=== PATIENT | male | born 1995 | race African-American/Black ===

== ENCOUNTER 2020-06-02 00:12 | Emergency (ER) | payer SELFPAY ==
[2020-06-02] VITALS (20 sets, daily range): BP systolic 110–125; BP diastolic 62–79; PULSE 59–88; RESP 12–21; TEMP 36.7; O2SAT 96–98
--- NOTE | ~2020-06-02 | CT_ITS ---
EXAMINATION: CT brain wo con INDICATION: Headache COMPARISON: None TECHNIQUE: Standard unenhanced head CT. The dose-length product (DLP) was 605.33 mGy-cm. The mA was a djusted according to patient size. Iterative reconstruction technique was employed. FINDINGS: There is no intracranial hemorrhage, acute infarction, or abnormal mass lesion. The ventric les are normal. There is no abnormal mass effect or midline shift. The baldwin-white matter differentiat ion is normal. The basal cisterns are patent. The orbits are normal. There is mucosal thickening of t he ethmoidal air cells. IMPRESSION: 1. No acute intracranial abnormality. Reviewed, dictated and finalized at location A. [employer]
[2020-06-02] MEDS: levETIRAcetam 500MG/NACL 100ML 500 MG/100 ML BAG 400 MG IVPB (00:25)
[2020-06-02 00:40] LABS: Basophils Percent Auto 0.8 % (0.2-1.2); Eosinophils Absolute Auto 0.2 K/mm3 (0-0.3); Eosinophils Percent Auto 4.7 % (0-4.4); Hematocrit 36.7 % (42.0-52.0); Immature Granulocyte Absolute 0.02 K/mm3 (0.00-0.031); Immature Granulocyte Percent A 0.4 % (0-0.5); Lymphocytes Absolute Auto 1.67 K/mm3 (0.9-3.2); Lymphocytes Percent Auto 33.8 % (18.3-44.2); Mean Corpuscular HGB Conc 32.7 g/dl (32-36); Mean Corpuscular Hemoglobin 29.4 pg (26-34); Mean Platelet Volume 9.4 fl (7.4-10.4); Monocytes Absolute Auto 0.6 K/mm3 (0.1-0.6); Neutrophils Absolute Auto 2.3 K/mm3 (1.3-6.7); Neutrophils Percent Auto 47.3 % (45.5-73.1); Platelet Count Result 221 k/mm3 (150-375); Red Blood Count 4.08 M/mm3 (4.6-6.20); Red Cell Distribution Width 13.1 % (11.5-14.5); White Blood Count 4.9 K/mm3 (4.5-10.0)
[2020-06-02 00:53] LABS: Alanine Aminotransferase 67 U/L (4-50); Albumin Level 3.9 g/dL (3.5-5.1); Alkaline Phosphatase 51 U/L (38-126); Anion Gap 6 mmol/L (8-16); Aspartate Amino Transferase 128 U/L (17-59); Bilirubin,Total 0.2 mg/dL (0.2-1.3); Blood Urea Nitrogen 22 mg/dL (9-20); Calcium 8.9 mg/dL (8.4-10.2); Carbon Dioxide 26 mmol/L (22-30); Chloride 109 mmol/L (98-107); Estimated Glomerular Filt Rate > 60; Glucose 123 mg/dL (75-110); Potassium 3.7 mmol/L (3.4-5.0); Sodium 141 mmol/L (137-145)
--- NOTE | 2020-06-02 00:57 | ED.GENADULT ---
HPI - General Adult General Chief complaint: Seizure Stated complaint: Seizure Time Seen by Provider: 06/02/20 00:16 History of Present Illness HPI narrative: Patient is a 24-year-old gentleman who presents the emergency department with chief complaint of seizure. Patient has history of seizure disorder and takes Keppra and takes gabapentin. The patient reports she has an appointment scheduled with a neurologist in the near future as he has been having a large number of breakthrough seizures. Patient reports he is currently in custody by the [facility] department in [place] has been taking his medications and today had several seizures and had approximately 3 seizures at the alf and then had one in route to the emergency department. Currently the patient is alert and at his baseline neurological status. Related Data Allergies Allergy/AdvReac Type Severity Reaction Status Date / Time No Known Allergies Allergy Verified 06/02/20 00:21 Review of Systems Review of Systems: Narrative: A 10 system review of systems was completed on the patient and is negative except for what is stated in the HPI. Nursing and ancillary documentation was reviewed. PMFSH Comments Past medical history is significant for seizures Social history the patient is currently incarcerated Exam Narrative: Exam Narrative: GENERAL: Well-appearing, well-nourished, and in no acute distress. HEAD: Normocephalic, atraumatic. EYES: PERRLA and EOMI. ENT: Nares clear, no rhinorrhea or epistaxis. Mucous membranes moist. NECK: Supple. CHEST: Clear to auscultation. No respiratory distress. HEART: Regular rate and rhythm. No murmur heard. Normal peripheral pulses. ABDOMEN: Soft, nontender, nondistended, normal active bowel sounds. EXTREMITIES: Normal range of motion. No edema. SKIN: Warm, dry, no rash. NEURO: No focal deficits. Alert and oriented x3. PSYCH: Normal mood and affect. Course Course Emergency Course: CT head shows no evidence of acute abnormality laboratory studies are within normal limits Vital Signs Vital signs: Vital Signs Temperature 36.7 C 06/02/20 00:09 Pulse Rate 81 06/02/20 00:09 Respiratory Rate 12 06/02/20 00:09 Blood Pressure 119/79 06/02/20 00:09 Pulse Oximetry 98 06/02/20 00:09 Temperature 36.7 C 06/02/20 00:09 Pulse Rate 81 06/02/20 00:09 Respiratory Rate 12 06/02/20 00:09 Blood Pressure 119/79 06/02/20 00:09 Pulse Oximetry 97 06/02/20 00:18 Medical Decision Making Vital Signs Vital Signs: Vital Signs Temperature 36.7 C 06/02/20 00:09 Pulse Rate 81 06/02/20 00:09 Respiratory Rate 12 06/02/20 00:09 Blood Pressure 119/79 06/02/20 00:09 Pulse Oximetry 98 06/02/20 00:09 Temperature 36.7 C 06/02/20 00:09 Pulse Rate 81 06/02/20 00:09 Respiratory Rate 12 06/02/20 00:09 Blood Pressure 119/79 06/02/20 00:09 Pulse Oximetry 97 06/02/20 00:18 Lab Data Result diagrams: 06/02/20 00:25 06/02/20 00:25 Labs: Lab Results 06/02/20 06/02/20 Range/Units 00:25 00:25 WBC 4.9 (4.5-10.0) K/mm3 RBC 4.08 L (4.6-6.20) M/mm3 Hgb 12.0 L (14.0-18.0) g/dL Hct 36.7 L (42.0-52.0) % MCV 90.0 (80-100) fl MCH 29.4 (26-34) pg MCHC 32.7 (32-36) g/dl RDW 13.1 (11.5-14.5) % Plt Count 221 (150-375) k/mm3 MPV 9.4 (7.4-10.4) fl Immature Gran % (Auto) 0.4 (0-0.5) % Neut % (Auto) 47.3 (45.5-73.1) % Lymph % (Auto) 33.8 (18.3-44.2) % [place] % (Auto) 13.0 H (2.6-8.5) % Eos % (Auto) 4.7 H (0-4.4) % Baso % (Auto) 0.8 (0.2-1.2) % Lymph # (Auto) 1.67 (0.9-3.2) K/mm3 [place] # (Auto) 0.6 (0.1-0.6) K/mm3 Eos # (Auto) 0.2 (0-0.3) K/mm3 Baso # (Auto) 0.0 (0.0-0.1) K/mm3 Abs Immat Gran (auto) 0.02 (0.00-0.031) K/mm3 Absolute Neuts (auto) 2.3 (1.3-6.7) K/mm3 Absolute Nucleated RBC 0.0 (0.0-0.012) K/mm3 Nucleated RBC % 0.0 (0.0-0.2) % Sodium 141 (137-145) mmol/L P
== END 2020-06-02 02:05 ==
PROVIDERS: Emergency Provider Emergency Medicine
DX: G40.409 Other generalized epilepsy and epileptic syndromes, not intractable, without status epilepticus (principal)
CPT/HCPCS: 36415; 70450; 80053; 85025; 96365; 96367; 99284; J0131; J1953

== ENCOUNTER 2020-06-28 19:06 | Inpatient (IN) | payer BC, SELFPAY ==
[2020-06-28] VITALS (16 sets, daily range): BP systolic 94–144; BP diastolic 69–102; PULSE 59–96; RESP 10–19; TEMP 36.2–36.5; O2SAT 97–100; BMI 25.9
--- NOTE | ~2020-06-28 | XR_ITS ---
EXAMINATION: XR chest 1V portable DATE: 06/30/2020 05:45 INDICATION: Intubation TECHNIQUE: frontal view of the chest was obtained. COMPARISON: Chest radiograph dated 06/29/2020 FINDINGS: Endotracheal tube tip 4.6 cm above the wu. Nasogastric tube extends below the left hemidiaphragm with distal tip collimated off the study. Patient is rotated slightly towards the left. No focal airspace opacities, pulmonary edema, pleural e ffusion or pneumothorax. The cardiomediastinal silhouette is normal. IMPRESSION: 1. Lines and tubes in expected positions. No evident acute cardiopulmonary disease. Reviewed, dictated and finalized at location A. IMPRESSION: 1. Lines and tubes in expected positions. No evident acute cardiopulmonary dise ase.
--- NOTE | ~2020-06-28 | CT_ITS ---
EXAMINATION: CT cervical spine wo con DATE: 06/28/2020 21:48 INDICATION: Fall. Head and neck injury. TECHNIQUE: Computed tomography (CT) of the cervical spine was performed without intravenous contrast. Automated exposure control and iterative reconstruction technique were employed. Exam dose: 557.03 mGy-cm total exam DLP. COMPARISON: None FINDINGS: There is reversal cervical curvature which may be due to positioning or muscle spasm. C1 and C2 are normally aligned and the odontoid process is intact. No fracture or dislocation or lock ed facet or prevertebral soft tissue swelling. Cervical interspaces are well preserved.. IMPRESSION: Reversal; otherwise negative Reviewed, dictated and finalized at Location A. Reviewed, dictated and finalized at location A.
--- NOTE | ~2020-06-28 | XR_ITS ---
XR chest 1V portable DATE: 06/28/2020 19:53 INDICATION: Multiple seizures TECHNIQUE: Portable AP chest on 06/28/2020 1955 hours COMPARISON: None FINDINGS: Normal heart size. No hilar or mediastinal enlargement. No pulmonary infiltrate or consolid ation, pleural effusion or pulmonary vascular congestion or pneumothorax. IMPRESSION: No active cardiopulmonary disease Reviewed, dictated and finalized at location A.
--- NOTE | ~2020-06-28 | XR_ITS ---
XR chest 1V portable 07/01/2020 05:56 Indication: Respiratory failure Procedure: AP portable chest Comparison: 06/30/2020 Findings: Endotracheal tube tip 5 cm above the wu. NG tube tip in the stomach, side port likely a kian the GE junction. Bibasilar airspace disease has progressed. No pleural effusion or pneumothorax. No acute osseous abnormality. Impression: 1: Progression of bibasilar airspace disease which may represent edema, pneumonia and/or atelectasis. Reviewed, dictated and finalized at location A. Impression: 1: Progression of bibasilar airspace disease which may represent edema, pneumon ia and/or atelectasis.
--- NOTE | ~2020-06-28 | CT_ITS ---
EXAMINATION: CT brain wo con DATE: 06/28/2020 21:48 INDICATION: Fall. Head injury. TECHNIQUE: Computed tomography (CT) of the head was performed without intravenous contrast. The mA wa s adjusted according to patient size. Iterative reconstruction technique was employed. Exam dose: 60 5.33 mGy-cm total exam DLP. COMPARISON: 06/02/2020 CT brain FINDINGS: No mass lesion or hemorrhage or cerebrovascular accident. No midline shift or mass effect. Normal ventricular size. Normal baldwin-white matter differentiation. No subdural or epidural hematoma. No fracture or bone destruction of the cranial vault. Prominent bilateral patchy ethmoid air cell opacification and at least 1.3 cm mucous retention cyst o r polyp of the right maxillary sinus. The mastoid air cells are normally developed and aerated. IMPRESSION: No intracranial abnormality or skull fracture Prominent patchy bilateral ethmoid air cell opacification and right maxillary sinus polyp or mucous r etention cyst Reviewed, dictated and finalized at Location A. Reviewed, dictated and finalized at location A. IMPRESSION: No intracranial abnormality or skull fracture Prominent patchy bilateral ethmoid air cell opacification and right maxillary s inus polyp or mucous retention cyst
--- NOTE | ~2020-06-28 | XR_ITS ---
EXAMINATION: XR chest ET placement, XR abdomen NG/feed tube insert DATE: 06/29/2020 11:21 INDICATION: Endotracheal tube placement. Orogastric tube placement. TECHNIQUE: 1. Frontal view of the chest was obtained. 2. Single AP view of the abdomen was obtained. COMPARISON: Chest radiograph dated 06/28/2020 FINDINGS: Endotracheal tube tip 3.4 cm above the wu. Lungs remain clear with no focal airspace opacities, p ulmonary edema, pleural effusion or pneumothorax. The cardiomediastinal silhouette is normal. Nasogastric tube tip in proximal side port in the body of the stomach. No dilated loops of gas-filled bowel in the visualized abdomen. IMPRESSION: 1. Endotracheal tube and nasogastric tube in expected positions. 2. No acute cardiopulmonary disease. Reviewed, dictated and finalized at location A. IMPRESSION: 1. Endotracheal tube and nasogastric tube in expected positions. 2. No acute cardiopulmonary disease.
--- NOTE | ~2020-06-28 | CT_ITS ---
EXAMINATION: CT brain wo con DATE: 06/29/2020 13:46 INDICATION: Seizures. Head trauma. TECHNIQUE: Computed tomography (CT) of the head was performed without intravenous contrast. Sagittal and coronal reconstructions were performed. The mA was adjusted according to patient size. Iterative reconstruction technique was employed. The dose-length product was 605.33 mGy-cm. COMPARISON: head CT dated 06/28/2020 FINDINGS: No fracture. No acute intracranial hemorrhage, acute infarction or abnormal extra axial fluid collect ion. Ventricles are normal and symmetric. No mass/mass effect. Mild mucosal thickening the bilateral ethmoid and maxillary sinuses with mucous retention cyst in the inferior right maxillary sinus. The o rbits and mastoid air cells are normal. IMPRESSION: 1. Normal brain. No acute intracranial process. Reviewed, dictated and finalized at location A.
--- NOTE | ~2020-06-28 | XR_ITS ---
XR chest 1V portable 07/03/2020 05:35 Indication: Respiratory distress. Intubation. Procedure: AP portable chest Comparison: Comparison to multiple prior studies sequentially, with oldest reviewed study dated 06/30. Findings: Endotracheal tube tip 2.2 cm above the wu. NG tube in the stomach. No pneumothorax. Pro gression of patchy bilateral airspace disease most confluent in the lower lung zones. Possible small layering effusions. No pneumothorax. No acute osseous abnormality. Impression: 1: Progression of bilateral airspace disease which may represent pneumonia or edema. Reviewed, dictated and finalized at location A. Impression: 1: Progression of bilateral airspace disease which may represent pneumonia or e suyapa.
--- NOTE | ~2020-06-28 | XR_ITS ---
XR chest 1V portable 07/02/2020 05:32 Indication: Respiratory failure Procedure: AP portable chest Comparison: Comparison to multiple prior studies sequentially, with oldest reviewed study dated 06/28. Findings: Endotracheal tube tip 4.1 cm above the wu. NG tube in the stomach. No pneumothorax. Mil d interstitial edema. Layering right pleural effusion. Bibasilar infiltrates. Impression: 1: Mild interstitial edema with layering right pleural effusion. 2: Bibasilar infiltrates may represent atelectasis or pneumonia. Reviewed, dictated and finalized at location A. Impression: 1: Mild interstitial edema with layering right pleural effusion. 2: Bibasilar infiltrates may represent atelectasis or pneumonia.
--- NOTE | ~2020-06-28 | XR_ITS ---
XR chest 1V portable 07/04/2020 05:47 Indication: Respiratory failure Procedure: AP portable chest Comparison: Comparison to multiple prior studies sequentially, with oldest reviewed study dated 06/30. Findings: Bilateral airspace disease of the mid and lower lung zones. Endotracheal tube tip 3.3 cm ab ove the wu. NG tube in the stomach. Small pleural effusions. No pneumothorax. Impression: 1: Bilateral airspace disease predominantly of the mid and lower lung zones, edema or pneumonia. 2: Small pleural effusions. Reviewed, dictated and finalized at location A. Impression: 1: Bilateral airspace disease predominantly of the mid and lower lung zones, ed tom or pneumonia. 2: Small pleural effusions.
--- NOTE | 2020-06-28 19:22 | ED.SEIZURE ---
HPI - Seizure General Chief Complaint: Seizure Stated Complaint: seizure Time Seen by Provider: 06/28/20 19:17 Source: RN notes reviewed History of Present Illness HPI Narrative: Patient presents to emergency department from care home for seizures. Patient has a history of epilepsy currently on Keppra 1500 mg twice a day. The patient only takes his at 7 AM and 7 PM is not taking a 7 PM dose unsure if he took a 7 AM dose. Patient had patient had had several seizures at the care home today and then had seizure for EMS when she was given Valium 10 mg. Patient subsequently had 2 more seizures in the emergency department by my time of evaluation patient is currently unable to give any further history Related Data Home Medications Medication Instructions Recorded Confirmed fluoxetine 20 mg PO DAILY 06/28/20 06/28/20 gabapentin 400 mg PO DAILY 06/28/20 06/28/20 levetiracetam [Keppra] 1,500 mg PO BID 06/28/20 06/28/20 Allergies Allergy/AdvReac Type Severity Reaction Status Date / Time No Known Allergies Allergy Verified 06/02/20 00:21 Review of Systems Review of Systems: ROS unobtainable: Yes unobtainable due to medical condition (Postictal) PMFSH Past Medical History Medical History (Updated 06/29/20 @ 01:58 by Abel Snell DO) Depression Seizure disorder Surgical History Surgical History (Updated 06/29/20 @ 00:08 by Maureen Santos DO) No significant past surgical history Family History Family History Sibling Seizure Arrhythmia Pacemaker Father Arrhythmia Social History Social History (Updated 06/29/20 @ 00:09 by Maureen Santos DO) Smoking status: Never smoker Alcohol use details: Patient denies current alcohol use. Last use: Patient denies illicit substance use. Additional living arrangements comments: The patient is currently incarcerated in the [facility] care home for the last several months. Gender identity (if verbalized by the patient): Male Spiritual care concerns: No Exam Narrative: Exam Narrative: APPEARANCE: Laying in bed with eyes open will shake yes or no to questions about his name but unable to answer definitive questions at this EYES: PERRL HEENT: Normocephalic, atraumatic, OMM RESPIRATORY: No respiratory distress Clear to auscultation bilaterally with no rhonchi wheezing or rales. CARDIOVASCULAR: Regular rate and rhythm without murmurs rubs or gallops. ABDOMINAL: Soft, nontender, nondistended, no rebound or guarding MUSCULOSKELETAl: Moves all extremities. No clubbing, cyanosis or edema. NEURO: Awake and alert. Shakes head yes to his name nonverbal moves all extremities SKIN:: Warm, dry. No rashes lesions or abrasions PSYCHIATRIC: Normal affect/mood, Course Course Emergency Course: Discussed with Dr. Palma after initial evaluation agrees with plan to give Keppra at this time with Ativan for breakthrough seizures Discussed with Dr. Santos presentation work-up agrees with admission at this time Discussed Dr. Palma is a patient's had several further seizures recommends giving other styles milligrams of Keppra states can give up to 4000 mg total of Keppra Patient loaded with an additional 1000 mg of Keppra no additional breakthrough seizures following this Patient now awake and alert x3 following commands in the room Discussed with patient and family results of workup and diagnosis. Discussed need for admission. Patient and family understand and agree to current treatment plan Vital Signs Vital signs: Vital Signs Pulse Rate 79 06/28/20 19:11 Respiratory Rate 15 06/28/20 19:11 Pulse Oximetry 99 06/28/20 19:11 Temperature 97.7 F 06/28/20 22:20 Pulse Rate 64 06/29/20 00:00 Respiratory Rate 16 06/28/20 22:20 Blood Pressure 115/77 06/28/20 22:20 Pulse Oximetry 97 06/28/20 22:20 MDM - Seizure Lab Data Result diagrams: 06/28/20 19:34 06/28/20 19:34 Shahnaz
[2020-06-28] MEDS: LORazepam INJ (*CRX) 2 MG/ML VIAL (19:32)
[2020-06-28] MEDS: levETIRAcetam 1000MG/NACL100ML 1,000 MG/100 ML BAG 400 MG IVPB ×2 (19:33→21:07)
[2020-06-28 19:41] LABS: Basophils Percent Auto 0.2 % (0.2-1.2); Eosinophils Absolute Auto 0.2 K/mm3 (0-0.3); Eosinophils Percent Auto 3.9 % (0-4.4); Hematocrit 38.8 % (42.0-52.0); Hemoglobin 12.6 g/dL (14.0-18.0); Immature Granulocyte Absolute 0.02 K/mm3 (0.00-0.031); Immature Granulocyte Percent A 0.4 % (0-0.5); Lymphocytes Absolute Auto 1.54 K/mm3 (0.9-3.2); Lymphocytes Percent Auto 31.6 % (18.3-44.2); Mean Corpuscular HGB Conc 32.5 g/dl (32-36); Mean Corpuscular Hemoglobin 29.2 pg (26-34); Mean Corpuscular Volume 89.8 fl (80-100); Mean Platelet Volume 9.4 fl (7.4-10.4); Monocytes Absolute Auto 0.7 K/mm3 (0.1-0.6); Monocytes Percent Auto 13.9 % (2.6-8.5); Neutrophils Absolute Auto 2.4 K/mm3 (1.3-6.7); Platelet Count Result 233 k/mm3 (150-375); Red Blood Count 4.32 M/mm3 (4.6-6.20); Red Cell Distribution Width 12.8 % (11.5-14.5); White Blood Count 4.9 K/mm3 (4.5-10.0)
[2020-06-28] MEDS: levETIRAcetam 500MG/NACL 100ML 500 MG/100 ML BAG 400 MG IVPB (19:45)
[2020-06-28] MEDS: SODIUM CHLORIDE 0.9% IV 1,000 ML 999 ML IV CONT (19:49)
[2020-06-28 19:53] LABS: Alanine Aminotransferase 16 U/L (4-50); Albumin Level 3.9 g/dL (3.5-5.1); Alkaline Phosphatase 69 U/L (38-126); Anion Gap 6 mmol/L (8-16); Aspartate Amino Transferase 25 U/L (17-59); Bilirubin,Total 0.2 mg/dL (0.2-1.3); Blood Urea Nitrogen 18 mg/dL (9-20); Calcium 8.6 mg/dL (8.4-10.2); Carbon Dioxide 26 mmol/L (22-30); Chloride 108 mmol/L (98-107); Estimated CRCL calculation 119 ml/min; Estimated Glomerular Filt Rate > 60; Glucose 105 mg/dL (75-110); Potassium 3.8 mmol/L (3.4-5.0); Sodium 140 mmol/L (137-145)
[2020-06-28 21:10] LABS: Add Urine Microscopic? NO; Appearance Urine Clear (Clear); Bilirubin Urine Negative (Negative); Blood Urine Negative (Negative); Color Urine Yellow (Yellow); Glucose Urine UA Negative (Negative); Ketones Urine Negative (Negative); Leukocyte Esterase Ur Negative LEU/UL (Negative); Nitrate Urine Negative (Negative); Protein Urine Negative (Negative); Urobilinogen Urine Negative mg/dL (<2.0)
[2020-06-28 21:21] LABS: Amphetamine Screen Urine Negative (Negative); Barbiturate Screen Urine Negative (Negative); Benzodiazepines Screen Urine Positive (Negative); Cannabinoid Screen Urine Negative (Negative); Cocaine Screen Urine Negative (Negative); Methadone Screen Urine Negative (Negative); Opiate Screen Urine Negative (Negative); Phencyclidine Screen Urine Negative (Negative)
--- NOTE | 2020-06-28 22:19 | ADMGEN ---
This patient, Haresh Kaye, was admitted to IMU Room 211-01. Patient/family oriented to hospital policies and general routines including ID bracelet, bed and alarms, visiting hours, pain management, procedures, bathroom and other care routines, personal items, smoking policy, room service/diet, and visiting hours. Information on how to activate the Rapid Response Team has been discussed. Patient/Family are encouraged to report perceived risks to care and to ask questions if they do not understand what they are told or what they should do.
[2020-06-28] MEDS: SODIUM CHLORIDE 0.9% IV 1,000 ML 125 ML IV CONT (22:25)
--- NOTE | 2020-06-28 22:30 | PC.NURSE ---
Pt accompanied to the room by two police officers. Officers provided [facility] Orientation Checklist. One officer refused to fill out form, stating I don't work here. Information was verbally reviewed.
--- NOTE | 2020-06-28 22:56 | PC.NURSE ---
Dr. Palma called for update on pt condition. No new seizure activity at this time.
--- NOTE | 2020-06-28 23:55 | PM.IMHP ---
H&P: HPI History of Present Illness Date/Time: 06/28/20 23:00 Chief Complaint: Multiple seizures Narrative: 24-year-old male with past medical history of epilepsy since 16 years of age who presented to the ER from the [facility] where he was incarcerated due to multiple seizures. The patient had been evaluated in the ER in May for breakthrough seizure and had been discharged back to the [facility] after given a loading dose of Keppra. The patient reports that he has been taking his medications in his Keppra had been increased to 1500 mg between his last ER visit and this ER visit. Despite these medication changes the patient still has brief seizures every 2 or 3 days. Today the patient had between 5 and 8 seizures prior to arrival to the ER. He had a tonic-clonic seizure and received a dose of 10 mg of Valium. When the patient arrived the ER he had another 2 seizures that lasted less than a minute each. He received 1 bolus of IV Keppra 1 g. After his Keppra bolus he continued to have several other seizures while in the ER. He received 2 mg of Ativan and additional 1 g of Keppra. His seizures are tonic colonic in nature with postictal periods. The patient occasionally will have loss of bladder control with his seizures but did not have loss of bladder control today. Patient reports he has a generalized headache that is 8/10 in intensity. His headache started after his seizures. He denies any head injury. He has no evidence of trauma. He denies any nasal congestion but is noted to be congested on exam. He denies any fevers or chills. He has not had any visual changes. He is currently alert oriented to person, place and month. He is confused as to the year in things is 2019. He initially told me that the president was Joanie but did redirect himself and state that the president is Juliana. Neurology was contacted by the ER physician and recommended placing patient on IV Keppra 1.5 g q.12 hours. Neurology also told the ER physician the patient could have a total of 4 g of Keppra and bolus if needed for continued seizures. [facility] Past Medical History Medical History (Updated 06/29/20 @ 00:13 by Maureen Santos DO) Depression Seizure disorder Surgical History Surgical History (Updated 06/29/20 @ 00:08 by Maureen Santos DO) No significant past surgical history Family History Family History Sibling Seizure Arrhythmia Pacemaker Father Arrhythmia Social History Social History (Updated 06/29/20 @ 00:09 by Maureen Santos DO) Smoking status: Never smoker Alcohol use details: Patient denies current alcohol use. Last use: Patient denies illicit substance use. Additional living arrangements comments: [facility]. Gender identity (if verbalized by the patient): Male Spiritual care concerns: No Meds Home Medications and Allergies Home Medications Medication Instructions Recorded Confirmed Type fluoxetine 20 mg PO DAILY 06/28/20 06/28/20 History gabapentin 400 mg PO DAILY 06/28/20 06/28/20 History levetiracetam [Keppra] 1,500 mg PO BID 06/28/20 06/28/20 History Allergies Allergy/AdvReac Type Severity Reaction Status Date / Time No Known Allergies Allergy Verified 06/02/20 00:21 Vital Signs Vital Signs - 24 hr 06/28/20 19:11 06/28/20 19:15 06/28/20 19:16 Temperature 97.2 F L Pulse Rate 79 79 81 Respiratory Rate 15 10 L 15 Blood Pressure 115/69 115/69 Pulse Oximetry 99 98 97 06/28/20 19:30 06/28/20 19:31 06/28/20 20:14 Temperature Pulse Rate 80 74 Respiratory Rate 14 17 Blood Pressure 94/75 L Pulse Oximetry 98 99 06/28/20 20:15 06/28/20 20:16 06/28/20 20:33 Temperature Pulse Rate 72 91 86 Respiratory Rate 15 10 L 14 Blood Pressure 132/93 H Pulse Oximetry 100 06/28/20 20:34 06/28/20 20:45 06/28/20 20:46 Tem
[2020-06-29] VITALS (33 sets, daily range): BP systolic 105–134; BP diastolic 56–98; PULSE 59–115; RESP 16–24; TEMP 36.1–36.7; O2SAT 98–100
[2020-06-29] MEDS: LORazepam INJ (*CRX) 2 MG/ML VIAL 1 MG IV PUSH (04:49)
[2020-06-29 05:11] LABS: Basophils Percent Auto 0.2 % (0.2-1.2); Eosinophils Absolute Auto 0.2 K/mm3 (0-0.3); Eosinophils Percent Auto 4.6 % (0-4.4); Hematocrit 38.5 % (42.0-52.0); Hemoglobin 12.5 g/dL (14.0-18.0); Immature Granulocyte Absolute 0.02 K/mm3 (0.00-0.031); Immature Granulocyte Percent A 0.4 % (0-0.5); Lymphocytes Absolute Auto 1.62 K/mm3 (0.9-3.2); Lymphocytes Percent Auto 35.5 % (18.3-44.2); Mean Corpuscular HGB Conc 32.5 g/dl (32-36); Mean Corpuscular Hemoglobin 29.5 pg (26-34); Mean Corpuscular Volume 90.8 fl (80-100); Mean Platelet Volume 9.4 fl (7.4-10.4); Monocytes Absolute Auto 0.6 K/mm3 (0.1-0.6); Monocytes Percent Auto 13.4 % (2.6-8.5); Neutrophils Absolute Auto 2.1 K/mm3 (1.3-6.7); Neutrophils Percent Auto 45.9 % (45.5-73.1); Platelet Count Result 236 k/mm3 (150-375); Red Blood Count 4.24 M/mm3 (4.6-6.20); Red Cell Distribution Width 12.9 % (11.5-14.5); White Blood Count 4.6 K/mm3 (4.5-10.0)
[2020-06-29] MEDS: ACETAMINOPHEN 325 MG TABLET 650 MG PO (05:28)
[2020-06-29 05:51] LABS: Alanine Aminotransferase 15 U/L (4-50); Albumin Level 3.5 g/dL (3.5-5.1); Alkaline Phosphatase 63 U/L (38-126); Anion Gap 4 mmol/L (8-16); Aspartate Amino Transferase 24 U/L (17-59); Bilirubin,Total 0.5 mg/dL (0.2-1.3); Blood Urea Nitrogen 12 mg/dL (9-20); Calcium 8.4 mg/dL (8.4-10.2); Carbon Dioxide 25 mmol/L (22-30); Chloride 109 mmol/L (98-107); Estimated CRCL calculation 144 ml/min; Estimated Glomerular Filt Rate > 60; Glucose 94 mg/dL (75-110); Potassium 3.8 mmol/L (3.4-5.0); Sodium 138 mmol/L (137-145)
[2020-06-29] MEDS: SODIUM CHLORIDE 0.9% IV 1,000 ML 125 ML IV CONT (06:38)
[2020-06-29] MEDS: ENOXAPARIN 40 MG/0.4 ML SYRINGE SUB-Q (08:43)
[2020-06-29] MEDS: FLUoxetine HCL 20 MG CAPSULE PO (08:43)
[2020-06-29] MEDS: GABAPENTIN 400 MG CAPSULE PO (08:43)
--- NOTE | 2020-06-29 10:22 | PC.NURSE ---
RN outside of room and heard loud thump in patient's room. Upon entering patient's room I saw patient on floor seizing. RN notified Dr. Street immediately who was in the room next door and she promptly came to see patient. Rapid Response was called and initiated. Administered 1mg of ativan and returned PT to bed.Vitals signs obtained and were stable. Dr. Street had called Dr. Lilly about transferring patient to ICU. IV Keppra changed to Q8H. Dr. Lilly notified Dr. Palma of situation. IV Valproic acid Q8H was then also ordered, with first dose now. Stat brain CT ordered. Adminstered 4mg of ativan r/t patient seizing again. Pt then moved to ICU for intubation r/t status epilepticus for airway protection. Brain CT to be obtained post intubation. Report given to JADEN Pearson @ [id number]
[2020-06-29] MEDS: LORazepam INJ (*CRX) 2 MG/ML VIAL IV PUSH ×2 (10:23→20:28)
[2020-06-29] MEDS: LORazepam INJ (*CRX) 2 MG/ML VIAL 4 MG IV PUSH (10:38)
[2020-06-29] MEDS: RAPID SEQUENCE INTUBATION KIT 1 EACH (10:57)
[2020-06-29] MEDS: SODIUM CHLORIDE 0.9% IV 1,000 ML 999 ML IV CONT (11:00)
[2020-06-29] MEDS: PROPOFOL IV EMULSION 100 ML 4.92 MG IV CONT (11:00)
--- NOTE | 2020-06-29 11:07 | WPDCNINT ---
Assessment and Plan Assessment and plan (1) Seizure disorder: Code(s): G40.909 - Epilepsy, unspecified, not intractable, without status epilepticus Status: Acute Assessment and Plan: Patient with known history of seizure disorder with possible noncompliance with medication -multiple seizure activity since the time of admission -patient had been optimized with Keppra 1 g IV q.8 hours -discuss with neurology in added valproic acid 1 g q.8 hours -patient currently intubated, currently sedated with fall infusion which would benefit with seizures (2) Acute respiratory failure: Code(s): J96.00 - Acute respiratory failure, unspecified whether with hypoxia or hypercapnia Status: Acute Assessment and Plan: Patient was intubated secondary to being unresponsive and for airway protection -currently on CMV mode of ventilation, 50% FiO2, peep of 5 -Will obtain ABG -patient hopefully will be extubated soon once the seizures under control -currently on propofol infusion and Versed infusion (3) DVT prophylaxis: Code(s): Z29.9 - Encounter for prophylactic measures, unspecified Status: Acute Assessment and Plan: DVT prophylaxis: Lovenox Stress ulcer prophylaxis: Protonix Additional Plan Code status: Full code Critical care time spent: 47 minutes This dictation may have been done utilizing a voice recognition system. Attempts have been made to correct errors. However, there may be uncorrected grammatical, spelling, and recognition errors present. Due to a high probability of clinically significant, life threatening deterioration, the patient required my highest level of preparedness to intervene emergently and I personally spent this critical care time directly and personally managing the patient. This critical care time included obtaining a history; examining the patient; pulse oximetry; ordering and review of studies; arranging urgent treatment with development of a management plan; evaluation of patient's response to treatment; frequent reassessment; and discussions with other providers. It was exclusive of separately billable procedures and treating other patients and teaching time. Please see Assessment and Plan section and the rest of the note for further information on patient assessment and treatment [employer] Consult Note Consult date: 06/29/20 Time Seen: 10:36 Reason for consult: Seizures, intubated secondary to airway protection on 06/30/2020 HPI: Haresh Kaye is a 24 year old male with past medical history of seizures, depression disorder presented [facility]. Patient does have a history of seizures and is on Keppra 1500 mg q.12 hours. Patient possibly noncompliant with ER report. Patient had several seizures in the long-term on the day of admission, also had seizures in the ambulance Valium 10 mg prior to arrival to the hospital. He subsequently had 2 more seizures in the ER were tonic-clonic lasting less than a minute each. Patient received 1 g of Keppra IV, after which she continued to have seizure in the ER. Patient had been receiving Ativan. According to the hospitalist note patient also had headaches on the day of admission, 8/10 intensity. He complains of the headache started after the seizures. Denies any head injury. No evidence of trauma. Denies any fevers or chills, no visual changes. After neurology was contacted by the ER physician they recommended placing 1 Keppra 1.5 q.12 hours. Patient was transferred to the intermediate unit for further monitoring 06/29/2020: Patient was sitting up the side of the bed using the urinal when he had a tonic-clonic seizure activity and fell backwards and hit the ground, on if he hit his head or his elbows. Rapid response was called I went to see the patient who was in postictal. But open his eyes, followed commands in all extremities but did not answer any questions. While I was trying t
--- NOTE | 2020-06-29 11:30 | PC.NURSE ---
This patient, Haresh Kaye, was transferred to [ICU-4 ] on 06/29/20 at 1050. Personal belongings sent with patient. Report given to [JADEN Pearson at bedside @ 1130]. Appropriate documentation sent with patient.
--- NOTE | 2020-06-29 11:51 | PC.NURSE ---
[facility] [place] informed to notify next of kin for patient, that patient has been moved to ICU d/t change in status.
[2020-06-29] MEDS: PANTOPRAZOLE SODIUM IV 40 MG VIAL IV PUSH (11:54)
[2020-06-29] MEDS: MIDAZOLAM HCL (*CRX) 2 MG/2 ML VIAL IV PUSH (11:57)
--- NOTE | 2020-06-29 12:14 | WPDNEURCNPN ---
Assessment and Plan Assessment and plan (1) Status epilepticus: Code(s): G40.901 - Epilepsy, unspecified, not intractable, with status epilepticus Status: Acute (2) Breakthrough seizure: Code(s): G40.919 - Epilepsy, unspecified, intractable, without status epilepticus Status: Acute (3) Seizure disorder: Code(s): G40.909 - Epilepsy, unspecified, not intractable, without status epilepticus Status: Acute Additional Plan recurrent seizures in a person who is known to be epileptic and has been is started on Keppra work he has been taking on a regular basis but because of the his status at this stage Depakote: Has been added. Consult date: 06/29/20 Time Seen: 11:00 HPI: Haresh Kaye is a 24 year old male admitted to the hospital through the emergency room where he was brought from the [facility] with the complains of multiple seizures. Patient had been evaluated in May also for breakthrough seizures and had been started on Keppra on his last visit to the emergency room .patient was noted to have several brief seizures and on the day of visit to the emergency room more which were described as tonic-clonic somewhat responding to IV Valium ,subsequently requiring loading dosage of Keppra and admitted to hospital for further management Review of Systems Review of Systems: All systems reviewed & are unremarkable except as noted in HPI and below PMFSH Past Medical History Medical History Depression Seizure disorder Surgical History Surgical History No significant past surgical history Family History Family History Sibling Seizure Arrhythmia Pacemaker Father Arrhythmia Social History Social History (Updated 06/29/20 @ 00:09 by Maureen Santos DO) Smoking status: Never smoker Alcohol use details: Patient denies current alcohol use. Last use: Patient denies illicit substance use. Additional living arrangements comments: The patient is currently incarcerated in the [facility] for the last several months. Gender identity (if verbalized by the patient): Male Spiritual care concerns: No Meds Home Medications and Allergies Home Medications Medication Instructions Recorded Confirmed Type fluoxetine 20 mg PO DAILY 06/28/20 06/28/20 History gabapentin 400 mg PO DAILY 06/28/20 06/28/20 History levetiracetam [Keppra] 1,500 mg PO BID 06/28/20 06/28/20 History Allergies Allergy/AdvReac Type Severity Reaction Status Date / Time No Known Allergies Allergy Verified 06/02/20 00:21 Vital Signs Vital Signs - 24 hr 06/28/20 19:11 06/28/20 19:15 06/28/20 19:16 Temperature 36.2 C L Pulse Rate 79 79 81 Respiratory Rate 15 10 L 15 Blood Pressure 115/69 115/69 Pulse Oximetry 99 98 97 06/28/20 19:30 06/28/20 19:31 06/28/20 20:14 Temperature Pulse Rate 80 74 Respiratory Rate 14 17 Blood Pressure 94/75 L Pulse Oximetry 98 99 06/28/20 20:15 06/28/20 20:16 06/28/20 20:33 Temperature Pulse Rate 72 91 86 Respiratory Rate 15 10 L 14 Blood Pressure 132/93 H Pulse Oximetry 100 06/28/20 20:34 06/28/20 20:45 06/28/20 20:46 Temperature Pulse Rate 81 66 74 Respiratory Rate 12 11 L 14 Blood Pressure 144/102 H 131/82 Pulse Oximetry 99 99 100 06/28/20 21:00 06/28/20 21:01 06/28/20 22:20 Temperature 36.5 C Pulse Rate 61 80 96 Respiratory Rate 19 13 16 Blood Pressure 120/80 115/77 Pulse Oximetry 99 99 97 06/28/20 22:32 06/29/20 00:00 06/29/20 02:00 Temperature Pulse Rate 59 L 64 62 Respiratory Rate Blood Pressure Pulse Oximetry 06/29/20 04:00 06/29/20 06:00 06/29/20 08:00 Temperature 36.1 C L Pulse Rate 59 L 62 83 Respiratory Rate 18 Blood Pressure 105/56 L Pulse Oximetry 98 06/29/20 08:25 06/29/20 08:50 06/29/20 10:00 Tempera
[2020-06-29] MEDS: MIDAZOLAM 100MG/NS 100ML(*CRX) 100 MG/100 ML BAG IV CONT (12:26)
[2020-06-29 13:01] LABS: Base Excess ABG -0.3 mEq/l (+/-2.0); Carboxyhemoglobin 0.3 % THb (0-2.0); Fractional Inspired Oxygen 50 %; HCO3 ABG 23.8 mEq/l (22.0-26.0); Methemoglobin ABG 0.5 %THb (0-1.5); Oxygen Content ABG 18.5 %vol (16.0-22.0); Oxygen Saturation ABG 99.5 % (95.0-100.0); PCO2 ABG 37.3 mmHg (35.0-45.0); PO2 ABG 217.5 mmHg (80.0-100.0); PO2 FiO2 Ratio Arterial Blood 4.35 %; Reduced Hemoglobin 1.2 %THb (0-5.0); Total Hemoglobin 13.1 g/dL (12.0-18.0); pH ABG 7.423 (7.350-7.450)
[2020-06-29 13:02] LABS: Arterial Blood Gas PEEP 5 cmH2O; Arterial Blood Gas Tidal Volume 500 ml; Arterial Blood Gas Vent Mode CMV; Arterial Blood Gas Ventilator rate 18 /MIN; Device VENTILATOR; Site Drawn LEFT BRACHIAL
[2020-06-29 13:03] LABS: Arterial Blood Gas Pressure Support 0 cmH2O
[2020-06-29] MEDS: SODIUM CHLORIDE 0.9% IV 1,000 ML 100 ML IV CONT ×2 (13:11→23:43)
[2020-06-29] MEDS: levETIRAcetam 1000MG/NACL100ML 1,000 MG/100 ML BAG 400 MG IVPB ×2 (13:16→21:39)
--- NOTE | 2020-06-29 13:29 | WPDPROCEDUR ---
Procedures Intubation Intubation Date: 06/29/20 Intubation Time: 10:51 A pre-procedural Time-Out was completed immediately before starting the procedure and confirmed: Patient Identification, Site, Procedure, Patient Position and the Availability of Requisite Equipment: Yes Sedative: etomidate Paralytic: rocuronium Laryngoscope: fiber optic video scope ET tube size: 8 Tube secured depth (cm): 24 Tube secured location: lips Tube placement confirmation: visualized tube passing through cords, equal breath sounds bilaterally, no breath sounds over epigastrium and confirmation by capnometry Patient tolerated procedure: well Intubation complications: none Additional comments: I was Proctoring Dr. Street for this procedure and was present for the entire time of the procedure. I was standing by her side when she looked through the glide scope, vocal cords were visualized on the screen, Dr. Whiting inserted the ETT to the vocal cords into the trachea, secured the ETT at a depth of 24 cm at the lip. Confirmation was done with good color change on capnography, equal and bilateral breath sounds. Procedure was uneventful.
--- NOTE | 2020-06-29 13:50 | PM.IMPN ---
Progress Note: A&P Assessment and Plan (1) Status epilepticus: Code(s): G40.901 - Epilepsy, unspecified, not intractable, with status epilepticus Status: Acute Assessment and Plan: patient placed on ventilator support for further treatment and management with loaded with valproic acid currently on ventilator support management as per pt escort, appreciate pt escort note. neurology has been consulted appreciate neurology note follow neurology recommendations (2) Breakthrough seizure: Code(s): G40.919 - Epilepsy, unspecified, intractable, without status epilepticus Status: Acute Assessment and Plan: the patient had had his Keppra adjusted has had other trips to emergency room for similar problem Keppra has been restarted (3) Seizure disorder: Code(s): G40.909 - Epilepsy, unspecified, not intractable, without status epilepticus Status: Acute Assessment and Plan: patient with known epilepsy usually on Keppra but having breakthrough seizures currently on ventilator support and under sedation will get valproic acid Subjective Date/time seen: 06/29/20 13:50 patient is now on ventilator Review of Systems Review of Systems: Narrative: patient was brought to emergency room due to having seizures. patient is currently on ventilator support ROS unobtainable: Yes unobtainable due to medical condition Exam Narrative: Exam Narrative: at the time I visited the patient in the room he was sitting by the edge of the bed after he used the urinal. patient was able to answer simple questions with yes or no, shortly after I left the room a loud thought was heard as we entered the patient was laying face down and seizing on the floor a rapid response was activated under consult to pt escort Critical Care was called. after giving Ativan x1 it was noted the patient has been foamy secretions coming out of his mouth and was in and out of seizure not fully recuperating and post ictal decision was made to bring the patient to intensive care and placed under sedation and ventilator support for airway protection to avoid aspiration as well as seizure treatment. patient is now on ventilator. Const: General: comfortable, no acute distress, well developed, alert and awake Nutritional Appearance: average body habitus Orientation/consciousness: Other orientation findings ( Post ictal) HENMT: Head: normal to inspection, normocephalic and atraumatic Ears: hearing grossly normal bilaterally Face and sinus: normal facial exam Eyes: General: appearance normal, both eyes and all related structures Pupils: Equal, round and reactive pupils present EOM: EOMs intact bilaterally Neck: Neck: full ROM, no lymphadenopathy and no JVD Thyroid: thyroid normal Lymphatic: no lymphadenopathy noted Resp: Effort & Inspection: normal respiratory effort and able to speak in complete sentences Auscultation: clear to auscultation bilaterally Cardio: Jugular venous distension: no JVD Rate: regular rate Rhythm: regular rhythm Heart sounds: S1 normal heart sound present and S2 normal heart sound present GI: GI Palp: Yes Soft to palpation and Yes No hepatosplenomegaly present : General: Yes deferred Skin: Rashes: no rashes Wounds: no wounds Neuro: General: patient oriented x3, CN's II-XI intact bilaterally and other ( currently under sedation) Cranial nerves: Yes CN's II-XII intact bilaterally and Yes Equal, round and reactive pupils present Cognition (Neuro): normal cognition Speech: normal speech Gait exam (Neuro): Normal gait present Motor exam (neuro): 5/5 motor strength present throughout Extrem: General: normal to inspection, full ROM, no joint enlargement and no pedal edema Objective Data Vital Signs Vital Signs: Vital Signs - 24 hr 06/28/20 19:11 06/28/20 19:15 06/28/20 19:16 Temperature 97.2 F L Pulse Rate 79 79 81 Respiratory Rate 15 10 L 15 Blood Pressure 115/6
[2020-06-29] MEDS: PROPOFOL IV EMULSION 100 ML 24.6 MG IV CONT ×3 (15:06→23:43)
--- NOTE | 2020-06-29 18:56 | PC.NURSE ---
This patient, Haresh Kaye, was received from [[id number] ] on 06/29/20 at 1130. Patient/family oriented to unit policies and routines
[2020-06-30] VITALS (34 sets, daily range): BP systolic 116–144; BP diastolic 71–92; PULSE 55–125; RESP 16–20; TEMP 36.4–37.7; O2SAT 96–100
[2020-06-30] MEDS: PROPOFOL IV EMULSION 100 ML 24.6 MG IV CONT ×2 (03:35→16:23)
[2020-06-30 04:34] LABS: Basophils Percent Auto 0.2 % (0.2-1.2); Eosinophils Absolute Auto 0.1 K/mm3 (0-0.3); Eosinophils Percent Auto 2.6 % (0-4.4); Hematocrit 38.3 % (42.0-52.0); Hemoglobin 12.7 g/dL (14.0-18.0); Immature Granulocyte Absolute 0.02 K/mm3 (0.00-0.031); Immature Granulocyte Percent A 0.4 % (0-0.5); Lymphocytes Absolute Auto 1.07 K/mm3 (0.9-3.2); Lymphocytes Percent Auto 20.1 % (18.3-44.2); Mean Corpuscular HGB Conc 33.2 g/dl (32-36); Mean Corpuscular Hemoglobin 29.5 pg (26-34); Mean Corpuscular Volume 89.1 fl (80-100); Mean Platelet Volume 9.3 fl (7.4-10.4); Monocytes Absolute Auto 0.6 K/mm3 (0.1-0.6); Monocytes Percent Auto 11.8 % (2.6-8.5); Neutrophils Absolute Auto 3.5 K/mm3 (1.3-6.7); Neutrophils Percent Auto 64.9 % (45.5-73.1); Platelet Count Result 226 k/mm3 (150-375); White Blood Count 5.3 K/mm3 (4.5-10.0)
[2020-06-30 04:47] LABS: Alanine Aminotransferase 16 U/L (4-50); Albumin Level 3.4 g/dL (3.5-5.1); Alkaline Phosphatase 87 U/L (38-126); Anion Gap 5 mmol/L (8-16); Aspartate Amino Transferase 26 U/L (17-59); Bilirubin,Total 0.7 mg/dL (0.2-1.3); Blood Urea Nitrogen 8 mg/dL (9-20); Calcium 8.6 mg/dL (8.4-10.2); Carbon Dioxide 24 mmol/L (22-30); Chloride 112 mmol/L (98-107); Estimated CRCL calculation 144 ml/min; Estimated Glomerular Filt Rate > 60; Glucose 83 mg/dL (75-110); Magnesium 1.8 mg/dL (1.6-2.3); Potassium 3.4 mmol/L (3.4-5.0); Sodium 141 mmol/L (137-145)
[2020-06-30 05:22] LABS: Alveolar/Arterial O2 Gradient 56.9 mmHg; Base Excess ABG -0.6 mEq/l (+/-2.0); Carboxyhemoglobin 0.1 % THb (0-2.0); Device VENTILATOR; Fractional Inspired Oxygen 30 %; HCO3 ABG 22.1 mEq/l (22.0-26.0); Methemoglobin ABG 0.5 %THb (0-1.5); Modified Allen's Test Unable to perform; Oxygen Content ABG 19.1 %vol (16.0-22.0); Oxygen Saturation ABG 98.6 % (95.0-100.0); Oxyhemoglobin 97.4 % THb (90.0-100.0); PCO2 ABG 30.8 mmHg (35.0-45.0); PO2 ABG 120.8 mmHg (80.0-100.0); PO2 FiO2 Ratio Arterial Blood 4.03 %; Site Drawn RIGHT RADIAL; Total Hemoglobin 13.8 g/dL (12.0-18.0); pH ABG 7.473 (7.350-7.450)
[2020-06-30 05:23] LABS: Arterial Blood Gas PEEP 5 cmH2O; Arterial Blood Gas Tidal Volume 500 ml; Arterial Blood Gas Vent Mode CMV; Arterial Blood Gas Ventilator rate 18 /MIN
[2020-06-30] MEDS: levETIRAcetam 1000MG/NACL100ML 1,000 MG/100 ML BAG 400 MG IVPB ×3 (05:35→17:53)
[2020-06-30] MEDS: MIDAZOLAM 100MG/NS 100ML(*CRX) 100 MG/100 ML BAG IV CONT (06:35)
[2020-06-30] MEDS: PROPOFOL IV EMULSION 100 ML 19.68 MG IV CONT (07:27)
[2020-06-30] MEDS: PANTOPRAZOLE SODIUM IV 40 MG VIAL IV PUSH (08:03)
[2020-06-30] MEDS: ENOXAPARIN 40 MG/0.4 ML SYRINGE SUB-Q (08:05)
[2020-06-30] MEDS: GABAPENTIN 400 MG CAPSULE PO (08:07)
[2020-06-30] MEDS: FLUoxetine HCL 20 MG CAPSULE PO (08:07)
[2020-06-30] MEDS: POTASSIUM CHLORIDE 20 MEQ PACKET (FOR LIQUID) 40 MEQ FEED TUBE (08:12)
--- NOTE | 2020-06-30 09:12 | WPDINTPN ---
Progress Note: A&P Assessment and Plan (1) Seizure disorder: Code(s): G40.909 - Epilepsy, unspecified, not intractable, without status epilepticus Status: Acute Assessment and Plan: Patient with known history of seizure disorder with possible noncompliance with medication -multiple seizure activity since the time of admission -patient on propofol and Versed infusion despite which she had a seizure on the night of 06/29/2020 -discussed with Neurology, will increase Keppra to 1 g Q6H -continue valproic acid 1 g Q8H (2) Acute respiratory failure: Code(s): J96.00 - Acute respiratory failure, unspecified whether with hypoxia or hypercapnia Status: Acute Assessment and Plan: Patient was intubated secondary to being unresponsive and for airway protection -currently on CMV mode of ventilation, 50% FiO2, peep of 5 -Will obtain ABG -patient hopefully will be extubated soon once the seizures under control -currently on propofol infusion and Versed infusion, increasing Keppra, will start weaning his sedation evaluate for extubation if he passes his SBT (3) DVT prophylaxis: Code(s): Z29.9 - Encounter for prophylactic measures, unspecified Status: Acute Assessment and Plan: DVT prophylaxis: Lovenox Stress ulcer prophylaxis: Protonix Additional Plan Code status: Full code Critical care time spent: 32 minutes This dictation may have been done utilizing a voice recognition system. Attempts have been made to correct errors. However, there may be uncorrected grammatical, spelling, and recognition errors present. Due to a high probability of clinically significant, life threatening deterioration, the patient required my highest level of preparedness to intervene emergently and I personally spent this critical care time directly and personally managing the patient. This critical care time included obtaining a history; examining the patient; pulse oximetry; ordering and review of studies; arranging urgent treatment with development of a management plan; evaluation of patient's response to treatment; frequent reassessment; and discussions with other providers. It was exclusive of separately billable procedures and treating other patients and teaching time. Please see Assessment and Plan section and the rest of the note for further information on patient assessment and treatment Subjective Date/time seen: 06/30/20 09:12 Interval history: Reason for consult: Seizures, intubated secondary to airway protection on 06/30/2020 06/30/2020: Patient seen and examined this morning in the ICU, remains sedated on propofol 50 mcg/kg/min and Versed infusion 5 mg/hr. Patient did have an episode of seizures last night and Versed was increased. Patient is on 30% FiO2 with good O2 sats, hemodynamically stable. Good urine output, no other issues overnight Review of Systems Review of Systems: ROS unobtainable: Yes unobtainable due to endotracheal tube Exam Const: General: comfortable and no acute distress HENMT: Mouth: Yes moist mucous membranes Eyes: Sclera: sclerae normal Pupils: Equal, round and reactive pupils present Neck: Neck: supple Resp: Effort & Inspection: normal respiratory effort Auscultation: clear to auscultation bilaterally Cardio: Rate: regular rate Rhythm: regular rhythm GI: Inspection: non-distended GI Palp: Yes Soft to palpation and No Tenderness to palpation present (GI) Auscultation: normal bowel sounds : Other: Nation catheter in place Urinary Catheter: Urinary Catheter: patent and draining and urine clear Skin: General skin exam: normal color Other: Tattoos noted Neuro: Cranial nerves: Yes Equal, round and reactive pupils present Other: Patient intubated, sedated, does not open his eyes or follow simple command -prior to intubation patient patient was awake, simple commands. After which she had multiple episodes of seizure activity Extrem: General: abdelrahman
[2020-06-30] MEDS: SODIUM CHLORIDE 0.9% IV 1,000 ML 100 ML IV CONT ×2 (09:41→19:58)
--- NOTE | 2020-06-30 09:44 | WPDNEUROPN ---
Progress Note: A&P Assessment and Plan (1) Status epilepticus: Code(s): G40.901 - Epilepsy, unspecified, not intractable, with status epilepticus Status: Acute (2) Acute respiratory failure: Code(s): J96.00 - Acute respiratory failure, unspecified whether with hypoxia or hypercapnia Status: Acute Additional Plan neurologically stable on propofol had a brief seizure yesterday measure being continued as such , possibly extubation today Review of Systems Review of Systems: All systems reviewed & are unremarkable except as noted in HPI and below Exam Const: General: patient obtunded Orientation/consciousness: Other orientation findings ( sedated) Limitations: other limitations Neck: Neck: full ROM Resp: Effort & Inspection: normal respiratory effort Cardio: Rate: regular rate Rhythm: regular rhythm Neuro: Comatose Patient: response to noxious stimuli present Extrem: General: normal to inspection Objective Data Vital Signs Vital Signs: Vital Signs - 24 hr 06/29/20 10:00 06/29/20 10:30 06/29/20 11:00 Temperature Pulse Rate 77 73 115 H Respiratory Rate 24 H Blood Pressure 122/60 Pulse Oximetry 99 100 06/29/20 11:32 06/29/20 11:40 06/29/20 11:45 Temperature Pulse Rate 99 93 Respiratory Rate 19 23 H Blood Pressure 119/98 H Pulse Oximetry 06/29/20 11:47 06/29/20 12:00 06/29/20 12:26 Temperature 36.7 C Pulse Rate 91 81 76 Respiratory Rate 23 H 18 18 Blood Pressure 123/76 Pulse Oximetry 99 06/29/20 13:25 06/29/20 13:53 06/29/20 13:55 Temperature Pulse Rate 74 75 70 Respiratory Rate 18 18 Blood Pressure Pulse Oximetry 100 06/29/20 14:00 06/29/20 16:00 06/29/20 16:17 Temperature 36.4 C L Pulse Rate 75 75 70 Respiratory Rate 18 18 18 Blood Pressure 126/74 129/82 Pulse Oximetry 100 100 06/29/20 17:17 06/29/20 18:00 06/29/20 19:20 Temperature Pulse Rate 60 60 60 Respiratory Rate 18 Blood Pressure 134/90 Pulse Oximetry 100 100 06/29/20 19:26 06/29/20 19:54 06/29/20 20:00 Temperature Pulse Rate 60 69 70 Respiratory Rate 18 Blood Pressure Pulse Oximetry 100 03/20/21 20:01 06/29/20 20:30 06/29/20 22:00 Temperature 36.7 C Pulse Rate 71 63 62 Respiratory Rate 18 18 Blood Pressure 134/90 Pulse Oximetry 100 06/29/20 22:01 06/29/20 22:53 06/30/20 00:00 Temperature Pulse Rate 62 70 58 L Respiratory Rate 18 Blood Pressure 126/83 Pulse Oximetry 100 100 06/30/20 00:01 06/30/20 02:00 06/30/20 02:18 Temperature 36.8 C Pulse Rate 58 L 59 L 58 L Respiratory Rate 18 18 Blood Pressure 124/85 119/77 Pulse Oximetry 100 100 100 06/30/20 04:00 06/30/20 04:01 06/30/20 05:34 Temperature 36.8 C Pulse Rate 58 L 59 L 57 L Respiratory Rate 18 Blood Pressure 116/77 Pulse Oximetry 100 100 06/30/20 06:00 06/30/20 06:01 06/30/20 07:20 Temperature Pulse Rate 59 L 59 L 57 L Respiratory Rate 18 18 Blood Pressure 123/78 Pulse Oximetry 100 06/30/20 07:57 06/30/20 08:00 06/30/20 08:14 Temperature 36.4 C L Pulse Rate 56 L 56 L 58 L Respiratory Rate 16 16 Blood Pressure 122/77 Pulse Oximetry 100 100 06/30/20 08:29 06/30/20 09:03 Temperature Pulse Rate 58 L 62 Respiratory Rate 16 16 Blood Pressure Pulse Oximetry Intake/Output Intake/Output: Intake & Output 06/27/20 06/28/20 06/29/20 06/30/20 23:59 23:59 23:59 23:59 Intake Total 1300 4788 1587 Output Total 200 5355 2525 Balance 1100 316 -813 Meds/Results Medications: Active Medications Generic Name Dose Route Start Last Admin Trade Name Freq PRN Reason Stop Dose Admin Acetaminophen 650 mg 06/29/20 05:06 06/29/20 05:28 Acetaminophen 325 Mg Tablet PO 650 mg Q4H PRN Administration Mild Pain (1-3) or Fever Enoxaparin Sodium 40 mg 06/29/20 09:00 06/30/20 08:05 Enoxaparin 40 Mg/0.4 Ml Syringe SUB-Q 40 mg DAILY GONZALEZ Administration Fluoxet
--- NOTE | 2020-06-30 12:57 | PM.IMPN ---
Progress Note: A&P Assessment and Plan (1) Status epilepticus: Code(s): G40.901 - Epilepsy, unspecified, not intractable, with status epilepticus Status: Acute Assessment and Plan: patient was placed on ventilator support for airway management as well as secretion better seizure control had 1 seizure last night Keppra has been increased to 1 g Q 6 hours valproic acid 1 g Q 8 planning for extubation today weaning off of sedation supportive care (2) Fall: Code(s): W19.XXXA - Unspecified fall, initial encounter Status: Acute Assessment and Plan: patient sustained a fall yesterday while he was sitting by the edge of the bed and started seizing a CT of the head did not show any fractures or bleeding. continue to monitor (3) Seizure disorder: Code(s): G40.909 - Epilepsy, unspecified, not intractable, without status epilepticus Status: Acute Assessment and Plan: neurology has been consulted patient's meds have been adjusted will continue to monitor supportive care Subjective Date/time seen: 06/30/20 12:57 at the time of visit patient was sedated and on ventilator support Review of Systems Review of Systems: ROS unobtainable: Yes unobtainable due to medical condition ( on ventilator support) Exam Const: General: comfortable, no acute distress, well developed and other ( under sedation on ventilator support) Nutritional Appearance: average body habitus Orientation/consciousness: Other orientation findings ( under sedation) HENMT: Head: normal to inspection, normocephalic and atraumatic Ears: hearing grossly normal bilaterally Face and sinus: normal facial exam Eyes: General: appearance normal, both eyes and all related structures Pupils: Equal, round and reactive pupils present EOM: EOMs intact bilaterally Neck: Neck: full ROM, no lymphadenopathy and no JVD Thyroid: thyroid normal Lymphatic: no lymphadenopathy noted Resp: Effort & Inspection: normal respiratory effort and able to speak in complete sentences Auscultation: clear to auscultation bilaterally Cardio: Jugular venous distension: no JVD Rate: regular rate Rhythm: regular rhythm Heart sounds: S1 normal heart sound present and S2 normal heart sound present GI: GI Palp: Yes Soft to palpation and Yes No hepatosplenomegaly present : General: Yes deferred Skin: Rashes: no rashes Wounds: no wounds Neuro: General: patient oriented x3 and CN's II-XI intact bilaterally Cranial nerves: Yes CN's II-XII intact bilaterally and Yes Equal, round and reactive pupils present Cognition (Neuro): abnormal cognition ( under sedation) Speech: normal speech Gait exam (Neuro): Normal gait present Motor exam (neuro): 5/5 motor strength present throughout Extrem: General: normal to inspection, full ROM, no joint enlargement and no pedal edema Objective Data Vital Signs Vital Signs: Vital Signs - 24 hr 06/29/20 13:25 06/29/20 13:53 06/29/20 13:55 Temperature Pulse Rate 74 75 70 Respiratory Rate 18 18 Blood Pressure Pulse Oximetry 100 06/29/20 14:00 06/29/20 16:00 06/29/20 16:17 Temperature 97.5 F L Pulse Rate 75 75 70 Respiratory Rate 18 18 18 Blood Pressure 126/74 129/82 Pulse Oximetry 100 100 06/29/20 17:17 06/29/20 18:00 06/29/20 19:20 Temperature Pulse Rate 60 60 60 Respiratory Rate 18 Blood Pressure 134/90 Pulse Oximetry 100 100 06/29/20 19:26 06/29/20 19:54 06/29/20 20:00 Temperature Pulse Rate 60 69 70 Respiratory Rate 18 Blood Pressure Pulse Oximetry 100 06/29/20 20:01 06/29/20 20:30 06/29/20 22:00 Temperature 98.1 F Pulse Rate 71 63 62 Respiratory Rate 18 18 Blood Pressure 134/90 Pulse Oximetry 100 06/29/20 22:01 06/29/20 22:53 06/30/20 00:00 Temperature Pulse Rate 62 70 58 L Respiratory Rate 18 Blood Pressure 126/83 Pulse Oximetry 100 100 06/30/20 00:01 06/30/20 02:00 06/30/20 02:18 Osiris
[2020-06-30] MEDS: PROPOFOL IV EMULSION 100 ML 14.76 MG IV CONT (13:00)
[2020-06-30] MEDS: PROPOFOL IV EMULSION 200 MG/20 ML VIAL 30 MG IV PUSH (14:00)
[2020-06-30] MEDS: PROPOFOL IV EMULSION 100 ML 22.14 MG IV CONT (20:31)
[2020-07-01] VITALS (42 sets, daily range): BP systolic 102–128; BP diastolic 54–78; PULSE 78–115; RESP 16–18; TEMP 36.8–37.8; O2SAT 96–100; BMI 26.5
[2020-07-01] MEDS: PROPOFOL IV EMULSION 100 ML 24.6 MG IV CONT ×3 (00:06→07:55)
[2020-07-01] MEDS: fentaNYL CITRATE INJ (*CRX) 100 MCG/2 ML VIAL IV PUSH (00:45)
[2020-07-01] MEDS: levETIRAcetam 1000MG/NACL100ML 1,000 MG/100 ML BAG 400 MG IVPB ×5 (00:54→23:14)
[2020-07-01 01:37] LABS: Add Urine Microscopic? YES; Appearance Urine Clear (Clear); Bacteria Urine Trace /hpf; Bilirubin Urine Negative (Negative); Blood Urine Negative (Negative); Color Urine Straw (Yellow); Glucose Urine UA Negative (Negative); Ketones Urine Trace mg/dL (Negative); Leukocyte Esterase Ur Negative LEU/UL (Negative); Mucus Urine Rare /lpf; Nitrate Urine Negative (Negative); Protein Urine Negative (Negative); RBC Urine 0-2 /hpf (0-2); Specific Grav Ur 1.009 (1.001-1.035); Squamous Epithelial Cell Urine Rare /hpf (Few); Urobilinogen Urine Negative mg/dL (<2.0); WBC Urine 0-3 /hpf
[2020-07-01 01:44] LABS: Lactic Acid Reflex 1.8 mmol/L (0.7-2.1)
--- NOTE | 2020-07-01 04:56 | P.PNCROSS_ITS ---
Event Note Event Note Event Note: Nursing staff notified me that the patient had earlier in the day been sinus bradycardia. However at the beginning of the shift the patient developed sinus tachycardia. The around 8:00 p.m. the patient became febrile. Stat blood cultures and sputum culture were ordered. The patient's UA did not suggest infection. Lactic acid was normal at 1.8. Chest x-ray from 06/30 was reviewed and was unremarkable. Given the patient had been having seizures is at risk for aspiration and is currently ventilated the patient will be placed on Zosyn and vancomycin for possible pneumonia. Respiratory attempted to obtain a sputum specimen but was unable to obtain specimen for evaluation. The patient is also incarcerated at the [facility] and is at higher risk for COVID exposures. Will check COVID-19 PCR. The patient's cheetah score was 5% and not indicative of fluid responsive state.
[2020-07-01 05:20] LABS: Alveolar/Arterial O2 Gradient 102.7 mmHg; Base Excess ABG -1.9 mEq/l (+/-2.0); Fractional Inspired Oxygen 30 %; HCO3 ABG 21.6 mEq/l (22.0-26.0); Methemoglobin ABG 0.6 %THb (0-1.5); Oxygen Content ABG 19.5 %vol (16.0-22.0); Oxygen Saturation ABG 95.1 % (95.0-100.0); Oxyhemoglobin 93.7 % THb (90.0-100.0); PCO2 ABG 33.3 mmHg (35.0-45.0); PO2 ABG 72.1 mmHg (80.0-100.0); Reduced Hemoglobin 5.7 %THb (0-5.0); Total Hemoglobin 14.8 g/dL (12.0-18.0); pH ABG 7.429 (7.350-7.450)
[2020-07-01 05:21] LABS: Device VENTILATOR; Modified Allen's Test Unable to perform; Site Drawn RIGHT RADIAL
[2020-07-01 05:22] LABS: Arterial Blood Gas PEEP 5 cmH2O; Arterial Blood Gas Tidal Volume 500 ml; Arterial Blood Gas Vent Mode CMV; Arterial Blood Gas Ventilator rate 16 /MIN
[2020-07-01 05:45] LABS: Basophils Percent Auto 0.3 % (0.2-1.2); Eosinophils Percent Auto 0.3 % (0-4.4); Hematocrit 44.7 % (42.0-52.0); Hemoglobin 14.5 g/dL (14.0-18.0); Immature Granulocyte Absolute 0.05 K/mm3 (0.00-0.031); Immature Granulocyte Percent A 0.4 % (0-0.5); Lymphocytes Absolute Auto 1.15 K/mm3 (0.9-3.2); Lymphocytes Percent Auto 8.6 % (18.3-44.2); Mean Corpuscular HGB Conc 32.4 g/dl (32-36); Mean Corpuscular Hemoglobin 29.3 pg (26-34); Mean Corpuscular Volume 90.3 fl (80-100); Monocytes Absolute Auto 1.3 K/mm3 (0.1-0.6); Monocytes Percent Auto 9.7 % (2.6-8.5); Neutrophils Absolute Auto 10.9 K/mm3 (1.3-6.7); Neutrophils Percent Auto 80.7 % (45.5-73.1); Platelet Count Result 230 k/mm3 (150-375); Red Blood Count 4.95 M/mm3 (4.6-6.20); Red Cell Distribution Width 13.2 % (11.5-14.5); White Blood Count 13.5 K/mm3 (4.5-10.0)
[2020-07-01 05:56] LABS: Alanine Aminotransferase 14 U/L (4-50); Albumin Level 3.8 g/dL (3.5-5.1); Alkaline Phosphatase 87 U/L (38-126); Anion Gap 8 mmol/L (8-16); Aspartate Amino Transferase 33 U/L (17-59); Bilirubin,Total 0.9 mg/dL (0.2-1.3); Blood Urea Nitrogen 9 mg/dL (9-20); Calcium 8.5 mg/dL (8.4-10.2); Carbon Dioxide 22 mmol/L (22-30); Chloride 111 mmol/L (98-107); Estimated CRCL calculation 144 ml/min; Estimated Glomerular Filt Rate > 60; Glucose 77 mg/dL (75-110); Magnesium 1.6 mg/dL (1.6-2.3); Phosphorus 3.7 mg/dL (2.5-4.5); Potassium 3.6 mmol/L (3.4-5.0); Sodium 141 mmol/L (137-145)
[2020-07-01] MEDS: SODIUM CHLORIDE 0.9% IV 1,000 ML 100 ML IV CONT (06:51)
[2020-07-01] MEDS: FLUoxetine HCL 20 MG CAPSULE PO (07:56)
[2020-07-01] MEDS: GABAPENTIN 400 MG CAPSULE PO (07:56)
[2020-07-01] MEDS: ENOXAPARIN 40 MG/0.4 ML SYRINGE SUB-Q (07:56)
[2020-07-01] MEDS: PANTOPRAZOLE SODIUM IV 40 MG VIAL IV PUSH (07:57)
--- NOTE | 2020-07-01 08:38 | WPDINTPN ---
Progress Note: A&P Assessment and Plan (1) Seizure disorder: Code(s): G40.909 - Epilepsy, unspecified, not intractable, without status epilepticus Status: Acute Assessment and Plan: Patient with known history of seizure disorder with possible noncompliance with medication -multiple seizure activity since the time of admission -patient on propofol, urine is green in color, will discontinue propofol. -continue patient on Versed infusion and will start fentanyl infusion for sedation - currently on Keppra 1 g Q 6 hours IV -continue valproic acid 1 g Q8H IV (2) Acute respiratory failure: Code(s): J96.00 - Acute respiratory failure, unspecified whether with hypoxia or hypercapnia Status: Acute Assessment and Plan: Patient was intubated secondary to being unresponsive and for airway protection -currently on CMV mode of ventilation, 30% FiO2, peep of 5 -chest x-ray 07/01 of bibasilar airspace disease which may represent edema, pneumonia and/or atelectasis -elevated WBC count, patient has been started on mycin and Zosyn -SARS-CoV-2 PCR has been obtained -currently on propofol infusion and Versed infusion, increasing Keppra, will start weaning his sedation evaluate for extubation if he passes his SBT (3) Sepsis: Code(s): A41.9 - Sepsis, unspecified organism Status: Acute Assessment and Plan: Patient with fevers, tachycardia, leukocytosis, worsening chest x-ray -blood pressures and urine output has been stable, renal function is within normal limits -patient has been started on vancomycin and Zosyn -blood cultures have been obtained (4) Suspected 2019 novel coronavirus infection: Code(s): Z20.822 - Contact with and (suspected) exposure to COVID-19 Status: Acute Assessment and Plan: Patient from [facility], now is bibasilar airspace disease -SARS-CoV-2 PCR has been obtained and pending -place patient on airborne, droplet, contact isolation/precautions (5) DVT prophylaxis: Code(s): Z29.9 - Encounter for prophylactic measures, unspecified Status: Acute Assessment and Plan: DVT prophylaxis: Lovenox Stress ulcer prophylaxis: Protonix Additional Plan Will start tube feeds today Code status: Full code Critical care time spent: 32 minutes This dictation may have been done utilizing a voice recognition system. Attempts have been made to correct errors. However, there may be uncorrected grammatical, spelling, and recognition errors present. Due to a high probability of clinically significant, life threatening deterioration, the patient required my highest level of preparedness to intervene emergently and I personally spent this critical care time directly and personally managing the patient. This critical care time included obtaining a history; examining the patient; pulse oximetry; ordering and review of studies; arranging urgent treatment with development of a management plan; evaluation of patient's response to treatment; frequent reassessment; and discussions with other providers. It was exclusive of separately billable procedures and treating other patients and teaching time. Please see Assessment and Plan section and the rest of the note for further information on patient assessment and treatment Subjective Date/time seen: 07/01/20 08:38 Interval history: Reason for consult: Seizures, intubated secondary to airway protection on 06/30/2020 07/01/2020: Patient seen examined the ICU this morning. Remains on propofol 50 mg/mg/min and Versed 4 mg/hr infusion for sedation. Urine is green in color likely related to propofol. No seizure episodes overnight. Patient did spike a fever, was tachycardic. WBC count increased this morning, chest x-ray showed progression of bibasilar airspace disease this may represent edema, pneumonia, atelectasis. Urine output has been adequate Review of Systems Review of Systems: ROS unobtainable: Yes unob
[2020-07-01] MEDS: FENTANYL 2,500MCG/NS250ML(*CRX 2,500 MCG/250 ML BAG 7.5 MCG IV CONT (09:01)
[2020-07-01] MEDS: MAGNESIUM SULF 2 GM/WATER 50ML 2 GM/50 ML BAG IVPB (10:52)
[2020-07-01] MEDS: POTASSIUM CHLORIDE 20 MEQ PACKET (FOR LIQUID) 40 MEQ FEED TUBE (10:52)
[2020-07-01] MEDS: MIDAZOLAM 100MG/NS 100ML(*CRX) 100 MG/100 ML BAG IV CONT ×2 (11:01→20:32)
--- NOTE | 2020-07-01 11:01 | PCDIET ---
Propofol stopped - thus, change in recommendation to Jevity 1.2 at 70mL/hr goal which will provide 1848kcal and 85g protein over predicted 22 hours/day. Following daily in ICU rounds.
--- NOTE | 2020-07-01 15:37 | PM.IMPN ---
Progress Note: A&P Assessment and Plan (1) Status epilepticus: Code(s): G40.901 - Epilepsy, unspecified, not intractable, with status epilepticus Status: Acute Assessment and Plan: patient currently under sedation and on ventilator support Versed and fentanyl patient had another seizure while weaning off of vent continue ventilator support (2) Sepsis: Code(s): A41.9 - Sepsis, unspecified organism Status: Acute Assessment and Plan: likely secondary to aspiration was secretions into airway patient is started on vancomycin and Zosyn supportive care await blood cultures continue to monitor (3) Aspiration pneumonia: Code(s): J69.0 - Pneumonitis due to inhalation of food and vomit Status: Acute Assessment and Plan: likely secondary to seizures and decreased mentation now on ventilator support (4) Suspected 2019 novel coronavirus infection: Code(s): Z20.822 - Contact with and (suspected) exposure to COVID-19 Status: Acute Assessment and Plan: patient lives in [facility] (5) Fall: Code(s): W19.XXXA - Unspecified fall, initial encounter Status: Acute Assessment and Plan: CT head with no acute injury (6) Acute respiratory failure: Code(s): J96.00 - Acute respiratory failure, unspecified whether with hypoxia or hypercapnia Status: Acute Assessment and Plan: currently on ventilator support appreciate parish worker note (7) Seizure disorder: Code(s): G40.909 - Epilepsy, unspecified, not intractable, without status epilepticus Status: Acute Assessment and Plan: Keppra 1 g q.6 hours valproic acid 1 g Q 8 continue to monitor neurology following Subjective Date/time seen: 07/01/20 15:37 patient on ventilator support Review of Systems Review of Systems: Narrative: on ventilator support Exam Narrative: Exam Narrative: patient is on ventilator support Const: General: comfortable, no acute distress, well developed and other ( in sync with the vent) Nutritional Appearance: average body habitus Orientation/consciousness: Other orientation findings ( under sedation) HENMT: Head: normal to inspection, normocephalic and atraumatic Face and sinus: normal facial exam Eyes: General: appearance normal, both eyes and all related structures Pupils: Equal, round and reactive pupils present EOM: EOMs intact bilaterally Neck: Neck: full ROM, no lymphadenopathy and no JVD Thyroid: thyroid normal Lymphatic: no lymphadenopathy noted Resp: Effort & Inspection: normal respiratory effort and able to speak in complete sentences Auscultation: clear to auscultation bilaterally Cardio: Jugular venous distension: no JVD Rate: regular rate Rhythm: regular rhythm Heart sounds: S1 normal heart sound present and S2 normal heart sound present GI: GI Palp: Yes Soft to palpation and Yes No hepatosplenomegaly present : General: Yes deferred Skin: Rashes: no rashes Wounds: no wounds Neuro: General: CN's II-XI intact bilaterally and other ( under sedation) Cranial nerves: Yes CN's II-XII intact bilaterally and Yes Equal, round and reactive pupils present Cognition (Neuro): abnormal cognition ( patient is under sedation with Versed and fentanyl) Gait exam (Neuro): Unable to assess gait Motor exam (neuro): 5/5 motor strength present throughout Extrem: General: normal to inspection, full ROM, no joint enlargement and no pedal edema Objective Data Vital Signs Vital Signs: Vital Signs - 24 hr 06/30/20 16:00 06/30/20 17:23 06/30/20 18:00 Temperature 98.2 F Pulse Rate 80 70 69 Respiratory Rate 16 16 Blood Pressure 135/89 133/78 Pulse Oximetry 100 100 100 06/30/20 20:00 06/30/20 20:12 06/30/20 21:40 Temperature 99.9 F H Pulse Rate 81 79 121 H Respiratory Rate 16 20 Blood Pressure 144/86 H Pulse Oximetry 100 98 06/30/20 22:00 06/30/20 22:37
[2020-07-01 20:24] LABS: SARS-CoV-2 RNA PCR Negative
[2020-07-02] VITALS (41 sets, daily range): BP systolic 95–125; BP diastolic 51–75; PULSE 56–115; RESP 16–25; TEMP 36–38; O2SAT 94–100
[2020-07-02 04:12] LABS: Basophils Percent Auto 0.2 % (0.2-1.2); Eosinophils Absolute Auto 0.3 K/mm3 (0-0.3); Eosinophils Percent Auto 3.5 % (0-4.4); Hematocrit 38.9 % (42.0-52.0); Hemoglobin 12.6 g/dL (14.0-18.0); Immature Granulocyte Absolute 0.05 K/mm3 (0.00-0.031); Immature Granulocyte Percent A 0.6 % (0-0.5); Lymphocytes Absolute Auto 0.63 K/mm3 (0.9-3.2); Lymphocytes Percent Auto 6.9 % (18.3-44.2); Mean Corpuscular HGB Conc 32.4 g/dl (32-36); Mean Corpuscular Hemoglobin 29.5 pg (26-34); Mean Corpuscular Volume 91.1 fl (80-100); Mean Platelet Volume 9.3 fl (7.4-10.4); Monocytes Absolute Auto 0.8 K/mm3 (0.1-0.6); Monocytes Percent Auto 8.7 % (2.6-8.5); Neutrophils Absolute Auto 7.3 K/mm3 (1.3-6.7); Neutrophils Percent Auto 80.1 % (45.5-73.1); Platelet Count Result 161 k/mm3 (150-375); Red Blood Count 4.27 M/mm3 (4.6-6.20); Red Cell Distribution Width 13.4 % (11.5-14.5); White Blood Count 9.1 K/mm3 (4.5-10.0)
[2020-07-02 04:29] LABS: Alanine Aminotransferase 34 U/L (4-50); Albumin Level 3.1 g/dL (3.5-5.1); Alkaline Phosphatase 64 U/L (38-126); Anion Gap 1 mmol/L (8-16); Aspartate Amino Transferase 44 U/L (17-59); Bilirubin,Total 0.8 mg/dL (0.2-1.3); Blood Urea Nitrogen 7 mg/dL (9-20); Calcium 7.7 mg/dL (8.4-10.2); Carbon Dioxide 29 mmol/L (22-30); Chloride 109 mmol/L (98-107); Estimated CRCL calculation 127 ml/min; Estimated Glomerular Filt Rate > 60; Glucose 100 mg/dL (75-110); Magnesium 2.1 mg/dL (1.6-2.3); Phosphorus 2.9 mg/dL (2.5-4.5); Potassium 3.7 mmol/L (3.4-5.0); Sodium 139 mmol/L (137-145)
[2020-07-02] MEDS: levETIRAcetam 1000MG/NACL100ML 1,000 MG/100 ML BAG 400 MG IVPB ×4 (05:19→23:31)
[2020-07-02] MEDS: ENOXAPARIN 40 MG/0.4 ML SYRINGE SUB-Q (08:20)
[2020-07-02] MEDS: FLUoxetine HCL 20 MG CAPSULE PO (08:20)
[2020-07-02] MEDS: GABAPENTIN 400 MG CAPSULE PO (08:20)
[2020-07-02] MEDS: PANTOPRAZOLE SODIUM IV 40 MG VIAL IV PUSH (08:20)
[2020-07-02] MEDS: ACETAMINOPHEN 325 MG TABLET 650 MG PO (08:23)
[2020-07-02] MEDS: MIDAZOLAM HCL (*CRX) 2 MG/2 ML VIAL 4 MG IV PUSH ×2 (09:25→11:11)
--- NOTE | 2020-07-02 10:39 | PCDIET ---
Nutrition Follow-Up Complete: Nutrition Diagnosis: Inadequate oral intake related to oral intubation as evidenced by NPO status. Nutrition Goal: Patient to meet estimated nutritional needs. Goal in progress. RN reports tube feedings held for 280mL residual - plan to resume after 2 hours. No significant residuals reported overnight. Jevity 1.2 was at 60mL/hr prior to holding. If residuals consistently greater than 250mL would consider prokinetic agent. Will follow closely. Last recorded weight is 86.5 kg which is increased from last review. +I/O. Bowel Motility: No documented BM - discussed with RN. +Bowel sounds reported. Labs Reviewed: Hgb (12.6), Hct (38.9), Alb (3.1), Naomie Ca (8.42) Meds Noted: Fentanyl, Versed, Protonix, Zosyn, Vancomycin, Magnesium Sulfate, KCl Additional Notes: No documented skin breakdown. Nutrition Monitoring and Evaluation: Follow up every Wednesday/Wednesday.
[2020-07-02] MEDS: FENTANYL 2,500MCG/NS250ML(*CRX 2,500 MCG/250 ML BAG 20 MCG IV CONT (10:59)
--- NOTE | 2020-07-02 11:39 | WPDNEUROPN ---
Progress Note: A&P Assessment and Plan (1) Status epilepticus: Code(s): G40.901 - Epilepsy, unspecified, not intractable, with status epilepticus Status: Acute Additional Plan at present S are controlled once he gets of sedation and extubated further examination will be done Review of Systems Review of Systems: All systems reviewed & are unremarkable except as noted in HPI and below Exam Const: Other: completely sedated Objective Data Vital Signs Vital Signs: Vital Signs - 24 hr 07/01/20 12:00 07/01/20 14:00 07/01/20 14:06 Temperature 37.3 C Pulse Rate 84 82 82 Respiratory Rate 16 16 16 Blood Pressure 106/54 L 107/61 Pulse Oximetry 100 98 07/01/20 14:07 07/01/20 14:11 07/01/20 16:00 Temperature 37.4 C Pulse Rate 81 81 82 Respiratory Rate 16 16 Blood Pressure 102/56 L Pulse Oximetry 98 98 07/01/20 17:01 07/01/20 17:24 07/01/20 17:25 Temperature Pulse Rate 81 81 82 Respiratory Rate 16 16 Blood Pressure Pulse Oximetry 97 07/01/20 18:00 07/01/20 19:28 07/01/20 20:00 Temperature 37.4 C Pulse Rate 82 80 78 Respiratory Rate 16 16 Blood Pressure 106/59 L 104/58 L Pulse Oximetry 96 97 99 07/01/20 20:32 07/01/20 22:00 07/01/20 22:23 Temperature Pulse Rate 81 88 83 Respiratory Rate 18 16 Blood Pressure 120/66 Pulse Oximetry 99 99 07/01/20 23:46 07/02/20 00:00 07/02/20 01:15 Temperature 37.7 C H Pulse Rate 78 75 84 Respiratory Rate 16 16 Blood Pressure 109/59 L Pulse Oximetry 99 100 97 07/02/20 02:00 07/02/20 03:35 07/02/20 04:00 Temperature 37.7 C H Pulse Rate 77 72 83 Respiratory Rate 16 16 17 Blood Pressure 103/56 L 110/53 L Pulse Oximetry 96 99 95 07/02/20 04:10 07/02/20 05:04 07/02/20 05:05 Temperature Pulse Rate 85 76 81 Respiratory Rate 16 16 Blood Pressure Pulse Oximetry 97 07/02/20 06:00 07/02/20 08:00 07/02/20 08:05 Temperature 38.0 C H Pulse Rate 72 102 H 100 Respiratory Rate 16 18 Blood Pressure 116/64 125/75 Pulse Oximetry 100 94 98 07/02/20 08:23 07/02/20 09:23 07/02/20 09:28 Temperature 38.0 C H 36.1 C L Pulse Rate 84 Respiratory Rate 16 Blood Pressure Pulse Oximetry 07/02/20 09:29 07/02/20 10:00 07/02/20 10:35 Temperature Pulse Rate 82 65 64 Respiratory Rate 16 16 16 Blood Pressure 107/51 L Pulse Oximetry 99 07/02/20 10:59 07/02/20 11:13 Temperature Pulse Rate 64 74 Respiratory Rate 16 16 Blood Pressure Pulse Oximetry Intake/Output Intake/Output: Intake & Output 06/29/20 06/30/20 07/01/20 07/02/20 23:59 23:59 23:59 23:59 Intake Total 4788 3346 4487.6 1627 Output Total 3975 3925 4000 400 Balance 813 -579 487.6 1227 Meds/Results Medications: Active Medications Generic Name Dose Route Start Last Admin Trade Name Freq PRN Reason Stop Dose Admin Acetaminophen 650 mg 06/29/20 05:06 07/02/20 08:23 Acetaminophen 325 Mg Tablet PO 650 mg Q4H PRN Administration Mild Pain (1-3) Enoxaparin Sodium 40 mg 06/29/20 09:00 07/02/20 08:20 Enoxaparin 40 Mg/0.4 Ml Syringe SUB-Q 40 mg DAILY GONZALEZ Administration Fluoxetine HCl 20 mg 06/29/20 09:00 07/02/20 08:20 Fluoxetine Hcl 20 Mg Capsule PO 20 mg DAILY GONZALEZ Administration Gabapentin 400 mg 06/29/20 09:00 07/02/20 08:20 Gabapentin 400 Mg Capsule PO 400 mg DAILY GONZALEZ Administration Valproate Sodium 1,000 mg/ 110 mls @ 100 mls/hr 06/29/20 11:00 07/02/20 06:52 Dextrose IVPB Infused Q8HR GONZALEZ Infusion Midazolam HCl 100 mg in 100 mls @ 10 mls/hr 06/29/20 12:20 07/02/20 11:13 Versed 100 Mg/Ns 100 Ml IV CONT 10 mg/hr .Q10H GONZALEZ 10 mls/hr Titration Protocol 10 MG/HR Levetiracetam 1,000 mg in 100 mls @ 400 mls/hr 06/30/20 12:00 07/02/20 11:18 Keppra Iv IVPB 400 mls/hr Q6HR GONZALEZ Administration Piperacillin Sod/Tazobactam Sod 4.5 gm in 100 mls @ 200 mls/hr 07/01/20 06:00 07/02/20 06:17 Zosyn 4.5 Gm/
--- NOTE | 2020-07-02 11:57 | PM.IMPN ---
Progress Note: A&P Assessment and Plan (1) Aspiration pneumonia: Code(s): J69.0 - Pneumonitis due to inhalation of food and vomit Status: Acute Assessment and Plan: currently on Zosyn on vanc, awaiting cultures afebrile (2) Suspected 2019 novel coronavirus infection: Code(s): Z20.822 - Contact with and (suspected) exposure to COVID-19 Status: Acute Assessment and Plan: ruled out (3) Fall: Code(s): W19.XXXA - Unspecified fall, initial encounter Status: Acute Assessment and Plan: no injuries CT head reviewed (4) Acute respiratory failure: Code(s): J96.00 - Acute respiratory failure, unspecified whether with hypoxia or hypercapnia Status: Acute Assessment and Plan: secondary to sedation, seizure, medication For airway protection on ventilator support management as per ceramic saw tender (5) Status epilepticus: Code(s): G40.901 - Epilepsy, unspecified, not intractable, with status epilepticus Status: Acute Assessment and Plan: patient is on Keppra, valproic acid fentanyl and Versed follow neurology recs (6) Seizure disorder: Code(s): G40.909 - Epilepsy, unspecified, not intractable, without status epilepticus Status: Acute Assessment and Plan: patient has history of epilepsy currently on Keppra and valproic acid Subjective Date/time seen: 07/02/20 11:57 patient is under sedation on ventilator support Review of Systems Review of Systems: ROS unobtainable: Yes unobtainable due to medical condition ( under sedation and on ventilator support) Exam Narrative: Exam Narrative: laying in bed under sedation Const: General: comfortable, no acute distress, well developed and other ( under sedation on ventilator support) Nutritional Appearance: average body habitus HENMT: Head: normal to inspection, normocephalic and atraumatic Ears: hearing grossly normal bilaterally Face and sinus: normal facial exam Eyes: General: appearance normal, both eyes and all related structures Pupils: Equal, round and reactive pupils present EOM: EOMs intact bilaterally Neck: Neck: full ROM, no lymphadenopathy and no JVD Thyroid: thyroid normal Lymphatic: no lymphadenopathy noted Resp: Effort & Inspection: normal respiratory effort and able to speak in complete sentences Auscultation: clear to auscultation bilaterally Cardio: Jugular venous distension: no JVD Rate: regular rate Rhythm: regular rhythm Heart sounds: S1 normal heart sound present and S2 normal heart sound present GI: GI Palp: Yes Soft to palpation and Yes No hepatosplenomegaly present : General: Yes deferred Skin: Rashes: no rashes Wounds: no wounds Neuro: General: CN's II-XI intact bilaterally Cranial nerves: Yes CN's II-XII intact bilaterally and Yes Equal, round and reactive pupils present Cognition (Neuro): abnormal cognition ( under sedation) Gait exam (Neuro): Unable to assess gait Motor exam (neuro): 5/5 motor strength present throughout Extrem: General: normal to inspection, full ROM, no joint enlargement and no pedal edema Objective Data Vital Signs Vital Signs: Vital Signs - 24 hr 07/01/20 12:00 07/01/20 14:00 07/01/20 14:06 Temperature 99.1 F Pulse Rate 84 82 82 Respiratory Rate 16 16 16 Blood Pressure 106/54 L 107/61 Pulse Oximetry 100 98 07/01/20 14:07 07/01/20 14:11 07/01/20 16:00 Temperature 99.3 F Pulse Rate 81 81 82 Respiratory Rate 16 16 Blood Pressure 102/56 L Pulse Oximetry 98 98 07/01/20 17:01 07/01/20 17:24 07/01/20 17:25 Temperature Pulse Rate 81 81 82 Respiratory Rate 16 16 Blood Pressure Pulse Oximetry 97 07/01/20 18:00 07/01/20 19:28 07/01/20 20:00 Temperature 99.4 F Pulse Rate 82 80 78 Respiratory Rate 16 16 Blood Pressure 106/59 L 104/58 L Pulse Oximetry 96 97 99 07/01/20 20:32 07/01/20 22:00 07/01/20 22:23 Temperature Pulse Rate 81 88 83 R
--- NOTE | 2020-07-02 13:07 | WPDINTPN ---
Progress Note: A&P Assessment and Plan (1) Seizure disorder: Code(s): G40.909 - Epilepsy, unspecified, not intractable, without status epilepticus Status: Acute Assessment and Plan: Patient with known history of seizure disorder with possible noncompliance with medication -multiple seizure activity since the time of admission but none in the past 24 hours -patient on propofol, urine is green in color. Propfol discontinue due to possibility of propylene glycol toxicity -continue patient on Versed infusion and will start fentanyl infusion for sedation - currently on Keppra 1 g Q 6 hours IV -continue valproic acid 1 g Q8H IV (2) Acute respiratory failure: Code(s): J96.00 - Acute respiratory failure, unspecified whether with hypoxia or hypercapnia Status: Acute Assessment and Plan: Patient was intubated secondary to being unresponsive and for airway protection -currently on CMV mode of ventilation, 30% FiO2, peep of 5 -chest x-ray 07/01 of bibasilar airspace disease which may represent edema, pneumonia and/or atelectasis -WBC coming down with start of antibiotics, patient has been started on vancomycin and Zosyn -SARS-CoV-2 PCR is negative -currently on Versed infusion and fentanyl infusion with increasing doses, Not a candidate for extubation due to active infection from aspiration pneumonia (3) Sepsis: Code(s): A41.9 - Sepsis, unspecified organism Status: Acute Assessment and Plan: Patient with fevers, tachycardia, leukocytosis, worsening chest x-ray -blood pressures and urine output has been stable, renal function is within normal limits -patient has been started on vancomycin and Zosyn -blood cultures have been obtained (4) Suspected 2019 novel coronavirus infection: Code(s): Z20.822 - Contact with and (suspected) exposure to COVID-19 Status: Acute Assessment and Plan: Patient from [facility], now is bibasilar airspace disease -SARS-CoV-2 PCR has been obtained and pending -place patient on airborne, droplet, contact isolation/precautions (5) DVT prophylaxis: Code(s): Z29.9 - Encounter for prophylactic measures, unspecified Status: Acute Assessment and Plan: DVT prophylaxis: Lovenox Stress ulcer prophylaxis: Protonix Additional Plan Code status: Full code Critical care time spent: 32 minutes This dictation may have been done utilizing a voice recognition system. Attempts have been made to correct errors. However, there may be uncorrected grammatical, spelling, and recognition errors present. Due to a high probability of clinically significant, life threatening deterioration, the patient required my highest level of preparedness to intervene emergently and I personally spent this critical care time directly and personally managing the patient. This critical care time included obtaining a history; examining the patient; pulse oximetry; ordering and review of studies; arranging urgent treatment with development of a management plan; evaluation of patient's response to treatment; frequent reassessment; and discussions with other providers. It was exclusive of separately billable procedures and treating other patients and teaching time. Please see Assessment and Plan section and the rest of the note for further information on patient assessment and treatment Subjective Date/time seen: 07/02/20 13:07 Interval history: The patient remains agitated on versed and fentanyl low dose drips. Given his possible aspiration pneumonia and fever yesterday, I felt he was not ready for extubation today. Review of Systems Review of Systems: All systems reviewed & are unremarkable except as noted in HPI and below Exam Const: General: comfortable and no acute distress HENMT: Mouth: Yes moist mucous membranes Eyes: Sclera: sclerae normal Pupils: Equal, round and reactive pupils present Neck: Neck: supple Resp: Effort & Inspectio
[2020-07-02] MEDS: MIDAZOLAM 100MG/NS 100ML(*CRX) 100 MG/100 ML BAG 9 MG IV CONT (15:39)
[2020-07-02 17:52] LABS: Vancomycin Trough 5.9 ug/mL (10.0-20.0)
[2020-07-02] MEDS: METOCLOPRAMIDE HCL INJ 10 MG/2 ML VIAL IV PUSH (21:42)
[2020-07-02 23:07] LABS: Levetiracetam Keppra 21.1 mcg/mL (12.0-46.0)
[2020-07-02] MEDS: FENTANYL 2,500MCG/NS250ML(*CRX 2,500 MCG/250 ML BAG 15 MCG IV CONT (23:54)
[2020-07-03] VITALS (35 sets, daily range): BP systolic 97–124; BP diastolic 57–80; PULSE 30–91; RESP 12–22; TEMP 36.2–36.6; O2SAT 96–100
[2020-07-03] MEDS: MIDAZOLAM 100MG/NS 100ML(*CRX) 100 MG/100 ML BAG 10 MG IV CONT (02:25)
[2020-07-03 04:47] LABS: Hemoglobin 11.3 g/dL (14.0-18.0); Mean Corpuscular HGB Conc 33.2 g/dl (32-36); Mean Corpuscular Hemoglobin 29.1 pg (26-34); Mean Corpuscular Volume 87.6 fl (80-100); Mean Platelet Volume 9.9 fl (7.4-10.4); Platelet Count Result 178 k/mm3 (150-375); Red Blood Count 3.88 M/mm3 (4.6-6.20); Red Cell Distribution Width 13.2 % (11.5-14.5); White Blood Count 6.1 K/mm3 (4.5-10.0)
[2020-07-03 05:02] LABS: Alanine Aminotransferase 38 U/L (4-50); Alkaline Phosphatase 67 U/L (38-126); Anion Gap 3 mmol/L (8-16); Aspartate Amino Transferase 46 U/L (17-59); Bilirubin,Total 0.6 mg/dL (0.2-1.3); Blood Urea Nitrogen 6 mg/dL (9-20); Calcium 8.1 mg/dL (8.4-10.2); Carbon Dioxide 29 mmol/L (22-30); Chloride 110 mmol/L (98-107); Estimated CRCL calculation 127 ml/min; Estimated Glomerular Filt Rate > 60; Glucose 119 mg/dL (75-110); Potassium 3.1 mmol/L (3.4-5.0); Sodium 142 mmol/L (137-145)
[2020-07-03] MEDS: levETIRAcetam 1000MG/NACL100ML 1,000 MG/100 ML BAG 400 MG IVPB ×4 (05:19→23:47)
--- NOTE | 2020-07-03 07:15 | WPDINTPN ---
Progress Note: A&P Assessment and Plan (1) Acute respiratory failure: Code(s): J96.00 - Acute respiratory failure, unspecified whether with hypoxia or hypercapnia Status: Acute Assessment and Plan: Patient was intubated secondary to being unresponsive and for airway protection from status epilepticus and likely has developed aspiration pneumonia -chest x-ray done today was reviewed and shows worsening of infiltrates -currently on CMV mode of ventilation, 30% FiO2, peep of 5 -WBC coming down with start of antibiotics, patient has been started on vancomycin and Zosyn. Since cultures have been Negative, I will discontinue vancomycin and continue Zosyn -SARS-CoV-2 PCR is negative -BNP 52. Currently not on fluids -patient has been difficult to sedate and manage. I will start Precedex infusion to allow safe weaning trial possible extubation. Patient may need to be evaluated for extubation without weaning trial if he does not cooperate (2) Aspiration pneumonia: Code(s): J69.0 - Pneumonitis due to inhalation of food and vomit Status: Acute Assessment and Plan: See above (3) Status epilepticus: Code(s): G40.901 - Epilepsy, unspecified, not intractable, with status epilepticus Status: Acute Assessment and Plan: Patient with known history of seizure disorder with possible noncompliance with medication -multiple seizure activity since the time of admission. Patient was intubated and sedated -patient on propofol, urine is green in color. Propofol discontinue due to possibility of propylene glycol toxicity -patient is on Versed infusion and fentanyl infusion for sedation -no obvious seizure activity observed in last 24 hours - currently on Keppra 1 g Q 6 hours IV -continue valproic acid 1 g Q8H IV (4) Sepsis: Code(s): A41.9 - Sepsis, unspecified organism Status: Acute Assessment and Plan: Secondary to aspiration pneumonia Hemodynamically stable (5) Suspected 2019 novel coronavirus infection: Code(s): Z20.822 - Contact with and (suspected) exposure to COVID-19 Status: Acute Assessment and Plan: Patient from [facility], now is bibasilar airspace disease -SARS-CoV-2 PCR was negative (6) DVT prophylaxis: Code(s): Z29.9 - Encounter for prophylactic measures, unspecified Status: Acute Assessment and Plan: DVT prophylaxis: Lovenox Stress ulcer prophylaxis: Protonix (7) Electrolyte abnormality: Code(s): E87.8 - Other disorders of electrolyte and fluid balance, not elsewhere classified Status: Acute Assessment and Plan: Replace low potassium Additional Plan Code status: Full code Currently on tube feeds Critical care time spent: 30 minutes This dictation may have been done utilizing a voice recognition system. Attempts have been made to correct errors. However, there may be uncorrected grammatical, spelling, and recognition errors present. Due to a high probability of clinically significant, life threatening deterioration, the patient required my highest level of preparedness to intervene emergently and I personally spent this critical care time directly and personally managing the patient. This critical care time included obtaining a history; examining the patient; pulse oximetry; ordering and review of studies; arranging urgent treatment with development of a management plan; evaluation of patient's response to treatment; frequent reassessment; and discussions with other providers. It was exclusive of separately billable procedures and treating other patients and teaching time. Please see Assessment and Plan section and the rest of the note for further information on patient assessment and treatment Subjective Date/time seen: 07/03/20 0715 Overnight events reviewed. Afebrile Continues to be on mechanical ventilation Continues to be on sedation with Versed and fentanyl Vitals acceptable
[2020-07-03] MEDS: dexmedeTOMIDine 400 MCG/100 ML 400 MCG/100 ML BAG IV CONT (08:05)
[2020-07-03] MEDS: POTASSIUM CHLORIDE 20 MEQ PACKET (FOR LIQUID) 40 MEQ FEED TUBE ×2 (08:06→11:48)
[2020-07-03 08:10] LABS: NT Pro B Type Natriuretic Pept 52 PG/ML (5-100)
--- NOTE | 2020-07-03 08:52 | PC.NURSE ---
Updated mother on plan of care via telephone
[2020-07-03] MEDS: FLUoxetine HCL 20 MG CAPSULE PO (09:10)
[2020-07-03] MEDS: GABAPENTIN 400 MG CAPSULE PO (09:10)
[2020-07-03] MEDS: ENOXAPARIN 40 MG/0.4 ML SYRINGE SUB-Q (09:10)
[2020-07-03] MEDS: PANTOPRAZOLE SODIUM IV 40 MG VIAL IV PUSH (09:11)
--- NOTE | 2020-07-03 10:57 | PCFNICU ---
ICU Rounding Note: Pt current nutrition was Jevity 1.2 at 70ml per hour over 22 hours per day with 30 ml water flushes Q4 hours. Feedings are on hold due to anticipated extubation today, 07/03/2020. Last recorded weight is 88.6kg which is increased from last review. +I/O noted. Bowel Motility: No bowel movement since admission, MD was notified. Labs Reviewed: Hgb 11.3, Hct 34.0, Alb 3, K 3.1, BUN 6, Glu 119 Meds Noted: Precedex, Lovenox, Fentanyl, Prozac, Neurontin, Lorazepam, Protonix, KCl, Zosyn, Keppra Additional Notes: Patient was on Jevity 1.2 at 70ml per hour over 22 hours per day with 30 ml water flushes every 4 hours providing patient with 1,848 calories, 85 grams of protein, and 1,422 ml of water. Elevated residuals were documented, and IV Reglan administered x 1. If unable to extubate recommend patient continue Jevity 1.2 at 70 ml per hour over 22 hours per day. If residuals remain greater than 250mL, would consider prokinetic agent. Following daily in ICU rounds. Will complete follow up assessment every Wednesday/Wednesday.
--- NOTE | 2020-07-03 11:14 | PCNSR ---
On 07/03/20, the student, Kath Breen, provided care and completed [facility] documentation on this patient. I have reviewed the student's documentation and agree with the findings.
--- NOTE | 2020-07-03 17:22 | PM.IMPN ---
Progress Note: A&P Assessment and Plan (1) Aspiration pneumonia: Code(s): J69.0 - Pneumonitis due to inhalation of food and vomit Status: Acute Assessment and Plan: currently on Zosyn on vanc, awaiting cultures afebrile (2) Suspected 2019 novel coronavirus infection: Code(s): Z20.822 - Contact with and (suspected) exposure to COVID-19 Status: Acute Assessment and Plan: ruled out (3) Fall: Code(s): W19.XXXA - Unspecified fall, initial encounter Status: Acute Assessment and Plan: no injuries CT head reviewed (4) Acute respiratory failure: Code(s): J96.00 - Acute respiratory failure, unspecified whether with hypoxia or hypercapnia Status: Acute Assessment and Plan: secondary to sedation, seizure, medication For airway protection on 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 no other events noted. family at bedside. Review of Systems Review of Systems: ROS unobtainable: Yes unobtainable due to medical condition ( under sedation and on ventilator support) Exam Narrative: Exam Narrative: little agitated at times while off sedation with cough refelx Const: General: comfortable, no acute distress, well developed and other ( under sedation on ventilator support) Nutritional Appearance: average body habitus Orientation/consciousness: Other orientation findings ( under sedation) HENMT: Head: normal to inspection, normocephalic and atraumatic Ears: hearing grossly normal bilaterally Face and sinus: normal facial exam Eyes: General: appearance normal, both eyes and all related structures Pupils: Equal, round and reactive pupils present EOM: EOMs intact bilaterally Neck: Neck: full ROM, no lymphadenopathy and no JVD Thyroid: thyroid normal Lymphatic: no lymphadenopathy noted Resp: Effort & Inspection: normal respiratory effort and able to speak in complete sentences Auscultation: clear to auscultation bilaterally Cardio: Jugular venous distension: no JVD Rate: regular rate Rhythm: regular rhythm Heart sounds: S1 normal heart sound present and S2 normal heart sound present : General: Yes deferred Skin: Rashes: no rashes Wounds: no wounds Neuro: General: CN's II-XI intact bilaterally, Unable to assess gait and other ( under sedation) Cranial nerves: Yes CN's II-XII intact bilaterally and Yes Equal, round and reactive pupils present Cognition (Neuro): abnormal cognition ( under sedation) Speech: normal speech Gait exam (Neuro): Unable to assess gait Motor exam (neuro): 5/5 motor strength present throughout Extrem: General: normal to inspection, full ROM, no joint enlargement and no pedal edema Objective Data Vital Signs Vital Signs: Vital Signs - 24 hr 07/02/20 17:53 07/02/20 17:54 07/02/20 18:00 Temperature Pulse Rate 57 L 58 L 57 L Respiratory Rate 16 16 16 Blood Pressure 112/65 Pulse Oximetry 100 07/02/20 19:57 07/02/20 19:58 07/02/20 20:00 Temperature 97.2 F L Pulse Rate 64 64 59 L Respiratory Rate 20 18 18 Blood Pressure 99/57 L Pulse Oximetry 100 07/02/20 22:00 07/02/20 22:06 07/02/20 22:07 Temperature Pulse Rate 69 65 64 Respiratory Rate 16 16 16 Blood Pressure 95/54 L Pulse Oximetry 99 07/02/20 23:00 07/02/20 23:53 07/02/20 23:54 Temperature Pulse Rate 59 L 80
[2020-07-03] MEDS: dexmedeTOMIDine 400 MCG/100 ML 400 MCG/100 ML BAG 15.51 MCG IV CONT (19:24)
[2020-07-04] VITALS (26 sets, daily range): BP systolic 104–133; BP diastolic 60–85; PULSE 52–93; RESP 12–25; TEMP 36.1–36.6; O2SAT 95–100
[2020-07-04] MEDS: dexmedeTOMIDine 400 MCG/100 ML 400 MCG/100 ML BAG 15.51 MCG IV CONT (01:14)
--- NOTE | 2020-07-04 02:08 | PC.NURSE ---
Bath given. At this time patient can follow simple commands, squeeze hands and nod head yes. Patient had small vomiting episode. Tube feeds had already been off. Turn to LIS. Continue to monitor.
[2020-07-04 04:34] LABS: Alveolar/Arterial O2 Gradient 71.9 mmHg; Base Excess ABG 0.5 mEq/l (+/-2.0); Fractional Inspired Oxygen 30 %; HCO3 ABG 26.1 mEq/l (22.0-26.0); Methemoglobin ABG 0.5 %THb (0-1.5); Oxygen Content ABG 17.6 %vol (16.0-22.0); Oxygen Saturation ABG 96.4 % (95.0-100.0); Oxyhemoglobin 95.7 % THb (90.0-100.0); PO2 FiO2 Ratio Arterial Blood 2.93 %; Reduced Hemoglobin 3.8 %THb (0-5.0); pH ABG 7.372 (7.350-7.450)
[2020-07-04 04:35] LABS: Device VENTILATOR; Modified Allen's Test Pass; Site Drawn RIGHT RADIAL
[2020-07-04 04:36] LABS: Arterial Blood Gas PEEP 5 cmH2O; Arterial Blood Gas Tidal Volume 500 ml; Arterial Blood Gas Vent Mode CMV; Arterial Blood Gas Ventilator rate 12 /MIN
[2020-07-04 04:47] LABS: Hematocrit 38.2 % (42.0-52.0); Hemoglobin 12.3 g/dL (14.0-18.0); Mean Corpuscular HGB Conc 32.2 g/dl (32-36); Mean Corpuscular Hemoglobin 29.3 pg (26-34); Mean Platelet Volume 9.9 fl (7.4-10.4); Platelet Count Result 210 k/mm3 (150-375); Red Cell Distribution Width 13.1 % (11.5-14.5); White Blood Count 5.6 K/mm3 (4.5-10.0)
[2020-07-04 05:11] LABS: Alanine Aminotransferase 41 U/L (4-50); Albumin Level 3.3 g/dL (3.5-5.1); Alkaline Phosphatase 77 U/L (38-126); Anion Gap 1 mmol/L (8-16); Aspartate Amino Transferase 36 U/L (17-59); Bilirubin,Total 0.4 mg/dL (0.2-1.3); Blood Urea Nitrogen 8 mg/dL (9-20); Calcium 8.7 mg/dL (8.4-10.2); Carbon Dioxide 30 mmol/L (22-30); Chloride 110 mmol/L (98-107); Estimated CRCL calculation 144 ml/min; Estimated Glomerular Filt Rate > 60; Glucose 103 mg/dL (75-110); Potassium 3.9 mmol/L (3.4-5.0); Sodium 141 mmol/L (137-145)
[2020-07-04 05:41] LABS: Vancomycin Trough < 5.0 ug/mL (10.0-20.0)
[2020-07-04] MEDS: levETIRAcetam 1000MG/NACL100ML 1,000 MG/100 ML BAG 400 MG IVPB ×4 (05:55→23:25)
[2020-07-04] MEDS: dexmedeTOMIDine 400 MCG/100 ML 400 MCG/100 ML BAG 11.08 MCG IV CONT (07:55)
--- NOTE | 2020-07-04 08:30 | PC.NURSE ---
Patient agitated, trying to self extubate. Dr. Lozano to bedside. Stat ABG to evaluate if extubate would be successful. Patient not following commands. Precedex on hold.
--- NOTE | 2020-07-04 08:32 | WPDINTPN ---
Progress Note: A&P Assessment and Plan (1) Acute respiratory failure: Code(s): J96.00 - Acute respiratory failure, unspecified whether with hypoxia or hypercapnia Status: Acute Assessment and Plan: Patient was intubated secondary to being unresponsive and for airway protection from status epilepticus and likely has developed aspiration pneumonia -chest x-ray and ABG reviewed -vancomycin DC did 07/03 and will continue Zosyn -SARS-CoV-2 PCR is negative -BNP 52. Currently not on fluids -patient has been difficult to sedate and manage. I have placed patient on pressure support ventilation trial and held all his sedation including Precedex infusion. Will extubate once he is more awake (2) Aspiration pneumonia: Code(s): J69.0 - Pneumonitis due to inhalation of food and vomit Status: Acute Assessment and Plan: See above (3) Status epilepticus: Code(s): G40.901 - Epilepsy, unspecified, not intractable, with status epilepticus Status: Acute Assessment and Plan: Patient with known history of seizure disorder with possible noncompliance with medication -multiple seizure activity since the time of admission. Patient was intubated and sedated -patient on propofol, urine is green in color. Propofol discontinue due to possibility of propylene glycol toxicity -patient was on Versed infusion and fentanyl infusion for sedation but now currently off -no obvious seizure activity observed in last 24 hours - currently on Keppra 1 g Q 6 hours IV -continue valproic acid 1 g Q8H IV (4) Sepsis: Code(s): A41.9 - Sepsis, unspecified organism Status: Acute Assessment and Plan: Secondary to aspiration pneumonia Hemodynamically stable (5) Suspected 2019 novel coronavirus infection: Code(s): Z20.822 - Contact with and (suspected) exposure to COVID-19 Status: Acute Assessment and Plan: Patient from [facility], now is bibasilar airspace disease -SARS-CoV-2 PCR was negative (6) DVT prophylaxis: Code(s): Z29.9 - Encounter for prophylactic measures, unspecified Status: Acute Assessment and Plan: DVT prophylaxis: Lovenox Stress ulcer prophylaxis: Protonix (7) Electrolyte abnormality: Code(s): E87.8 - Other disorders of electrolyte and fluid balance, not elsewhere classified Status: Acute Assessment and Plan: Replace low potassium Additional Plan Code status: Full code Currently the tube feeds are on hold for breathing trial Critical care time spent: 35 minutes This dictation may have been done utilizing a voice recognition system. Attempts have been made to correct errors. However, there may be uncorrected grammatical, spelling, and recognition errors present. Due to a high probability of clinically significant, life threatening deterioration, the patient required my highest level of preparedness to intervene emergently and I personally spent this critical care time directly and personally managing the patient. This critical care time included obtaining a history; examining the patient; pulse oximetry; ordering and review of studies; arranging urgent treatment with development of a management plan; evaluation of patient's response to treatment; frequent reassessment; and discussions with other providers. It was exclusive of separately billable procedures and treating other patients and teaching time. Please see Assessment and Plan section and the rest of the note for further information on patient assessment and treatment Subjective Date/time seen: 07/04/20 0710 Overnight events reviewed Afebrile Continues to be on mechanical ventilation Continues to be on sedation with Precedex. Versed and fentanyl was stopped around midnight and this morning patient follows commands but inconsistently Vitals acceptable Review of Systems Review of Systems: ROS unobtainable: Yes unobtainable due to endotrache
[2020-07-04 08:49] LABS: Alveolar/Arterial O2 Gradient 84.1 mmHg; Base Excess ABG -0.3 mEq/l (+/-2.0); Carboxyhemoglobin 0.3 % THb (0-2.0); Fractional Inspired Oxygen 30 %; HCO3 ABG 25.7 mEq/l (22.0-26.0); Methemoglobin ABG 0.3 %THb (0-1.5); Oxygen Content ABG 17.7 %vol (16.0-22.0); Oxygen Saturation ABG 94.2 % (95.0-100.0); Oxyhemoglobin 93.2 % THb (90.0-100.0); PCO2 ABG 47.3 mmHg (35.0-45.0); PO2 ABG 74.2 mmHg (80.0-100.0); PO2 FiO2 Ratio Arterial Blood 2.47 %; Reduced Hemoglobin 6.2 %THb (0-5.0); Total Hemoglobin 13.5 g/dL (12.0-18.0); pH ABG 7.353 (7.350-7.450)
[2020-07-04 08:50] LABS: Device VENTILATOR; Modified Allen's Test Pass; Site Drawn LEFT RADIAL
[2020-07-04 08:51] LABS: Arterial Blood Gas PEEP 5 cmH2O; Arterial Blood Gas Pressure Support 5 cmH2O; Arterial Blood Gas Vent Mode SPONTANEOUS
[2020-07-04] MEDS: PANTOPRAZOLE SODIUM IV 40 MG VIAL IV PUSH (08:52)
[2020-07-04] MEDS: ENOXAPARIN 40 MG/0.4 ML SYRINGE SUB-Q (08:52)
[2020-07-04] MEDS: GABAPENTIN 400 MG CAPSULE PO (08:58)
[2020-07-04] MEDS: FLUoxetine HCL 20 MG CAPSULE PO (08:58)
--- NOTE | 2020-07-04 11:31 | PCFNICU ---
ICU Rounding Note: Pt current nutrition is NPO. Nutrition recommendation: advance per Speech Bedside Swallow recommendations. Last recorded weight is 86 kg up from 83.9 kg on admit. Bowel Motility:No BM reported, hypoactive Bowel sounds. Labs Reviewed:Hgb 12.3,Hct 38.2,Alb 3.3,BUN 8 Meds Noted:Zosyn,Keppra,Prozac,Lovenox Additional Notes: Patient has been extubated. NPO at this time. Plans for bedside swallow eval. Following daily in ICU rounds. Assessing/reassessing every 3 days.
--- NOTE | 2020-07-04 11:39 | PM.IMPN ---
Progress Note: A&P Assessment and Plan (1) Aspiration pneumonia: Code(s): J69.0 - Pneumonitis due to inhalation of food and vomit Status: Acute Assessment and Plan: currently on Zosyn on vanc, awaiting cultures afebrile Will continue current treatment,repeat chest x-ray noted (2) Suspected 2019 novel coronavirus infection: Code(s): Z20.822 - Contact with and (suspected) exposure to COVID-19 Status: Acute Assessment and Plan: ruled out (3) Fall: Code(s): W19.XXXA - Unspecified fall, initial encounter Status: Acute Assessment and Plan: no injuries CT head reviewed (4) Acute respiratory failure: Code(s): J96.00 - Acute respiratory failure, unspecified whether with hypoxia or hypercapnia Status: Acute Assessment and Plan: secondary to sedation, seizure, medication For airway 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 Attempt to extubate was not very successful. Patient was put on sedation. No new complaints overnight. Review of Systems Review of Systems: ROS unobtainable: Yes unobtainable due to medical condition ( under sedation and on ventilator support) Exam Narrative: Exam Narrative: little agitated at times while off sedation with cough refelx Const: General: comfortable, no acute distress, well developed and other ( under sedation on ventilator support) Nutritional Appearance: average body habitus Orientation/consciousness: Other orientation findings ( under sedation) HENMT: Head: normal to inspection, normocephalic and atraumatic Ears: hearing grossly normal bilaterally Face and sinus: normal facial exam Eyes: General: appearance normal, both eyes and all related structures Pupils: Equal, round and reactive pupils present EOM: EOMs intact bilaterally Neck: Neck: full ROM, no lymphadenopathy and no JVD Thyroid: thyroid normal Lymphatic: no lymphadenopathy noted Resp: Effort & Inspection: normal respiratory effort and able to speak in complete sentences Auscultation: clear to auscultation bilaterally Cardio: Jugular venous distension: no JVD Rate: regular rate Rhythm: regular rhythm Heart sounds: S1 normal heart sound present and S2 normal heart sound present : General: Yes deferred Skin: Rashes: no rashes Wounds: no wounds Neuro: General: CN's II-XI intact bilaterally, Unable to assess gait and other ( under sedation) Cranial nerves: Yes CN's II-XII intact bilaterally and Yes Equal, round and reactive pupils present Cognition (Neuro): abnormal cognition ( under sedation) Speech: normal speech Gait exam (Neuro): Unable to assess gait Motor exam (neuro): 5/5 motor strength present throughout Extrem: General: normal to inspection, full ROM, no joint enlargement and no pedal edema Objective Data Vital Signs Vital Signs: Vital Signs - 24 hr 07/03/20 12:00 07/03/20 13:00 07/03/20 14:00 Temperature 36.3 C L Pulse Rate 76 90 83 Respiratory Rate 16 14 Blood Pressure 124/80 109/66 Pulse Oximetry 99 96 97 07/03/20 14:30 07/03/20 15:10 07/03/20 16:00 Temperature 36.5 C Pulse Rate 91 77 72 Respiratory Rate 16 22 H 12 Blood Pressure 116/79 Pulse Oximetry 100 97 07/03/20 16:52 07/03/20 18:00 07/03/20 19:24 Temperature Pulse Rate 74 76 73 Respiratory Rate 12 14 Blood Pressure
[2020-07-04] MEDS: ONDANSETRON INJ 4 MG/2 ML VIAL IV PUSH ×2 (11:57→15:28)
--- NOTE | 2020-07-04 15:28 | PC.NURSE ---
Patient nauseous, green emesis noted. Zofan given IVP.
[2020-07-05] VITALS (9 sets, daily range): BP systolic 91–128; BP diastolic 54–84; PULSE 75–88; RESP 13–25; TEMP 36.2–37.3; O2SAT 92–97
[2020-07-05 04:04] LABS: Alveolar/Arterial O2 Gradient 33.2 mmHg; Base Excess ABG 3.2 mEq/l (+/-2.0); Carboxyhemoglobin 0.3 % THb (0-2.0); Device ROOM AIR; Fractional Inspired Oxygen 21 %; Methemoglobin ABG 0.4 %THb (0-1.5); Oxygen Content ABG 16.5 %vol (16.0-22.0); Oxygen Saturation ABG 92.9 % (95.0-100.0); Oxyhemoglobin 91.7 % THb (90.0-100.0); PCO2 ABG 43.8 mmHg (35.0-45.0); PO2 ABG 64.1 mmHg (80.0-100.0); PO2 FiO2 Ratio Arterial Blood 3.05 %; Reduced Hemoglobin 7.6 %THb (0-5.0); Site Drawn LEFT BRACHIAL; Total Hemoglobin 12.8 g/dL (12.0-18.0); pH ABG 7.424 (7.350-7.450)
[2020-07-05] MEDS: ACETAMINOPHEN 325 MG TABLET 650 MG PO ×2 (05:24→18:14)
[2020-07-05 06:08] LABS: Hematocrit 35.9 % (42.0-52.0); Hemoglobin 11.9 g/dL (14.0-18.0); Mean Corpuscular HGB Conc 33.1 g/dl (32-36); Mean Corpuscular Hemoglobin 29.2 pg (26-34); Mean Corpuscular Volume 88.2 fl (80-100); Mean Platelet Volume 9.3 fl (7.4-10.4); Platelet Count Result 198 k/mm3 (150-375); Red Blood Count 4.07 M/mm3 (4.6-6.20); Red Cell Distribution Width 12.4 % (11.5-14.5); White Blood Count 5.2 K/mm3 (4.5-10.0)
[2020-07-05] MEDS: levETIRAcetam 1000MG/NACL100ML 1,000 MG/100 ML BAG 400 MG IVPB ×3 (06:13→17:11)
[2020-07-05 06:23] LABS: Alanine Aminotransferase 35 U/L (4-50); Albumin Level 3.6 g/dL (3.5-5.1); Alkaline Phosphatase 66 U/L (38-126); Anion Gap 5 mmol/L (8-16); Aspartate Amino Transferase 37 U/L (17-59); Bilirubin,Total 0.2 mg/dL (0.2-1.3); Blood Urea Nitrogen 12 mg/dL (9-20); Calcium 8.8 mg/dL (8.4-10.2); Carbon Dioxide 31 mmol/L (22-30); Chloride 104 mmol/L (98-107); Estimated CRCL calculation 144 ml/min; Estimated Glomerular Filt Rate > 60; Glucose 128 mg/dL (75-110); Magnesium 1.9 mg/dL (1.6-2.3); Potassium 3.9 mmol/L (3.4-5.0); Sodium 140 mmol/L (137-145)
[2020-07-05] MEDS: ENOXAPARIN 40 MG/0.4 ML SYRINGE SUB-Q (08:49)
[2020-07-05] MEDS: PANTOPRAZOLE SODIUM IV 40 MG VIAL IV PUSH (08:50)
[2020-07-05] MEDS: FLUoxetine HCL 20 MG CAPSULE PO (08:50)
[2020-07-05] MEDS: DOCUSATE SODIUM 100 MG CAPSULE PO ×2 (09:31→20:18)
[2020-07-05] MEDS: LACTULOSE 20 GM/30 ML UDC PO (09:42)
[2020-07-05] MEDS: GABAPENTIN 400 MG CAPSULE PO (09:42)
--- NOTE | 2020-07-05 10:03 | PM.IMPN ---
Progress Note: A&P Assessment and Plan (1) Aspiration pneumonia: Code(s): J69.0 - Pneumonitis due to inhalation of food and vomit Status: Acute Assessment and Plan: currently on Zosyn on vanc, awaiting cultures afebrile Will continue current treatment. If stays okay will transfer to regular floor today. (2) Suspected 2019 novel coronavirus infection: Code(s): Z20.822 - Contact with and (suspected) exposure to COVID-19 Status: Acute Assessment and Plan: ruled out (3) Fall: Code(s): W19.XXXA - Unspecified fall, initial encounter Status: Acute Assessment and Plan: no injuries CT head reviewed (4) Acute respiratory failure: Code(s): J96.00 - Acute respiratory failure, unspecified whether with hypoxia or hypercapnia Status: Acute Assessment and Plan: Patient is extubated now. Breathing better. Continue current treatment. (5) Status epilepticus: Code(s): G40.901 - Epilepsy, unspecified, not intractable, with status epilepticus Status: Acute Assessment and Plan: patient is on Keppra, valproic acid fentanyl and Versed follow neurology recs (6) Seizure disorder: Code(s): G40.909 - Epilepsy, unspecified, not intractable, without status epilepticus Status: Acute Assessment and Plan: patient has history of epilepsy currently on Keppra and valproic acid Additional Plan Patient is extubated now. Will monitor patient closely. Is stays okay will transfer to regular floor. Subjective Date/time seen: 07/05/20 10:03 Interval history: Patient was seen during the morning rounds today. Patient was extubated. Patient is breathing better. No chest pain. No abdominal pain, nausea, vomiting. Mood stable. No new complaints overnight. Review of Systems Review of Systems: ROS unobtainable: Yes unobtainable due to medical condition ( under sedation and on ventilator support) Exam Narrative: Exam Narrative: Extubated and breathing better. Const: General: comfortable, no acute distress, well developed and other ( under sedation on ventilator support) Nutritional Appearance: average body habitus Orientation/consciousness: Other orientation findings ( under sedation) HENMT: Head: normal to inspection, normocephalic and atraumatic Ears: hearing grossly normal bilaterally Face and sinus: normal facial exam Eyes: General: appearance normal, both eyes and all related structures Pupils: Equal, round and reactive pupils present EOM: EOMs intact bilaterally Neck: Neck: full ROM, no lymphadenopathy and no JVD Thyroid: thyroid normal Lymphatic: no lymphadenopathy noted Resp: Effort & Inspection: normal respiratory effort and able to speak in complete sentences Auscultation: clear to auscultation bilaterally Cardio: Jugular venous distension: no JVD Rate: regular rate Rhythm: regular rhythm Heart sounds: S1 normal heart sound present and S2 normal heart sound present : General: Yes deferred Skin: Rashes: no rashes Wounds: no wounds Neuro: General: CN's II-XI intact bilaterally, Unable to assess gait and other ( under sedation) Cranial nerves: Yes CN's II-XII intact bilaterally and Yes Equal, round and reactive pupils present Cognition (Neuro): abnormal cognition ( under sedation) Speech: normal speech Gait exam (Neuro): Unable to assess gait Motor exam (neuro): 5/5 motor strength present throughout Extrem: General: normal to inspection, full ROM, no joint enlargement and no pedal edema Objective Data Vital Signs Vital Signs: Vital Signs - 24 hr 07/04/20 11:58 07/04/20 12:00 07/04/20 14:00 Temperature 36.2 C L Pulse Rate 63 60 65 Respiratory Rate 18 22 H 22 H Blood Pressure 133/77 121/71 Pulse Oximetry 97 96 97 07/04/20 16:00 07/04/20 18:00 07/04/20 20:00 Temperature 36.3 C L 36.2 C L Pulse Rate 79 93 81 Respiratory Rate 19 17 18 Blood Pressure 129/85 125/84 104/60 Pulse Oxim
--- NOTE | 2020-07-05 11:25 | PC.NURSE ---
This patient, Haresh Kaye, was received from ICU on 07/05/20 at 1125. Patient/family oriented to unit policies and routines
--- NOTE | 2020-07-05 11:41 | PC.NURSE ---
This patient, Haresh Kaye, was transferred to [facility] via bed with RN and sitter at bedside on 07/05/20 at 1125. Personal belongings, medications and chart sent with patient. Report given to JADEN Suarez. Appropriate documentation sent with patient.
--- NOTE | 2020-07-05 11:43 | PC.NURSE ---
Mother updated on transfer to Rm 323.
--- NOTE | 2020-07-05 11:54 | WPDINTPN ---
Progress Note: A&P Assessment and Plan (1) Acute respiratory failure: Code(s): J96.00 - Acute respiratory failure, unspecified whether with hypoxia or hypercapnia Status: Acute Assessment and Plan: Patient was intubated secondary to being unresponsive and for airway protection from status epilepticus and likely has developed aspiration pneumonia -chest x-ray and ABG reviewed MSSA growing on sputum culture but anaerobic organisms may still be present -vancomycin DC did 07/03 and will continue Zosyn for total of 7 days -SARS-CoV-2 PCR is negative -BNP 52. Currently not on fluids -patient has been difficult to sedate and manage. I have placed patient on pressure support ventilation trial and held all his sedation including Precedex infusion. Will extubate once he is more awake (2) Aspiration pneumonia: Code(s): J69.0 - Pneumonitis due to inhalation of food and vomit Status: Acute Assessment and Plan: See above (3) Status epilepticus: Code(s): G40.901 - Epilepsy, unspecified, not intractable, with status epilepticus Status: Acute Assessment and Plan: Patient with known history of seizure disorder with possible noncompliance with medication -multiple seizure activity since the time of admission. Patient was intubated and sedated -patient on propofol, urine is green in color. Propofol discontinue due to possibility of propylene glycol toxicity -patient was on Versed infusion and fentanyl infusion for sedation but now currently off -no obvious seizure activity observed in last 24 hours - currently on Keppra 1 g Q 6 hours IV -continue valproic acid 1 g Q8H IV (4) Sepsis: Code(s): A41.9 - Sepsis, unspecified organism Status: Acute Assessment and Plan: Resolved, Secondary to aspiration pneumonia Hemodynamically stable Remove liang catheter today. (5) Suspected 2019 novel coronavirus infection: Code(s): Z20.822 - Contact with and (suspected) exposure to COVID-19 Status: Acute Assessment and Plan: [facility], now is bibasilar airspace disease -SARS-CoV-2 PCR was negative (6) DVT prophylaxis: Code(s): Z29.9 - Encounter for prophylactic measures, unspecified Status: Acute Assessment and Plan: DVT prophylaxis: Lovenox Stress ulcer prophylaxis: Protonix (7) Electrolyte abnormality: Code(s): E87.8 - Other disorders of electrolyte and fluid balance, not elsewhere classified Status: Acute Assessment and Plan: Replace low potassium Additional Plan Code status: Full code Currently the tube feeds are on hold for breathing trial Critical care time spent: 32 minutes This dictation may have been done utilizing a voice recognition system. Attempts have been made to correct errors. However, there may be uncorrected grammatical, spelling, and recognition errors present. Due to a high probability of clinically significant, life threatening deterioration, the patient required my highest level of preparedness to intervene emergently and I personally spent this critical care time directly and personally managing the patient. This critical care time included obtaining a history; examining the patient; pulse oximetry; ordering and review of studies; arranging urgent treatment with development of a management plan; evaluation of patient's response to treatment; frequent reassessment; and discussions with other providers. It was exclusive of separately billable procedures and treating other patients and teaching time. Please see Assessment and Plan section and the rest of the note for further information on patient assessment and treatment Subjective Date/time seen: 07/05/20 11:54 Interval history: Doing well today. Extubated yesterday. Still a bit sleepy but awake and answers questions appropriately. Sputum cultures are growing MSSA which should be susceptible to the Zosyn that he is on. Z
--- NOTE | 2020-07-05 13:00 | PCDIET ---
Nutrition Follow-Up Complete: Nutrition Diagnosis: Inadequate oral intake related to oral intubation as evidenced by NPO status. Nutrition Goal: Patient to meet estimated nutritional needs. Goal in progress. Patient extubated and placed on clear liquid diet. Emesis reported yesterday but patient reports tolerating clear liquid breakfast today without issue. Reports taking Ensure Clear which is being provided with meals TID. Last recorded weight is 86.6 kg which is stable with last review. Bowel Motility: No documented BM. Recommend adding medication, if medically appropriate. Labs Reviewed: Hgb (11.9), Hct (35.9), Glu (128) Meds Noted: Protonix, Zosyn, Valproate Additional Notes: No documented skin breakdown. Will continue to monitor with same goal. Nutrition Monitoring and Evaluation: Follow up every 5 days.
[2020-07-06] MEDS: levETIRAcetam 1000MG/NACL100ML 1,000 MG/100 ML BAG 400 MG IVPB ×3 (01:24→11:38)
[2020-07-06 05:27] VITALS: BP 120/69; PULSE 93; RESP 20; TEMP 36.9; O2SAT 95
[2020-07-06 06:14] LABS: Hematocrit 37.2 % (42.0-52.0); Hemoglobin 12.3 g/dL (14.0-18.0); Mean Corpuscular HGB Conc 33.1 g/dl (32-36); Mean Corpuscular Hemoglobin 28.7 pg (26-34); Mean Corpuscular Volume 86.7 fl (80-100); Mean Platelet Volume 9.7 fl (7.4-10.4); Platelet Count Result 230 k/mm3 (150-375); Red Blood Count 4.29 M/mm3 (4.6-6.20); Red Cell Distribution Width 12.5 % (11.5-14.5); White Blood Count 5.1 K/mm3 (4.5-10.0)
[2020-07-06 06:35] LABS: Alanine Aminotransferase 39 U/L (4-50); Albumin Level 3.9 g/dL (3.5-5.1); Alkaline Phosphatase 67 U/L (38-126); Anion Gap 8 mmol/L (8-16); Aspartate Amino Transferase 36 U/L (17-59); Bilirubin,Total 0.4 mg/dL (0.2-1.3); Blood Urea Nitrogen 10 mg/dL (9-20); Calcium 9.2 mg/dL (8.4-10.2); Carbon Dioxide 26 mmol/L (22-30); Chloride 107 mmol/L (98-107); Estimated CRCL calculation 144 ml/min; Estimated Glomerular Filt Rate > 60; Glucose 100 mg/dL (75-110); Potassium 3.8 mmol/L (3.4-5.0); Sodium 141 mmol/L (137-145)
[2020-07-06 08:00] VITALS: PULSE 93; RESP 20; O2SAT 94
[2020-07-06] MEDS: DOCUSATE SODIUM 100 MG CAPSULE PO ×2 (09:12→20:49)
[2020-07-06] MEDS: GABAPENTIN 400 MG CAPSULE PO (09:12)
[2020-07-06] MEDS: ENOXAPARIN 40 MG/0.4 ML SYRINGE SUB-Q (09:12)
[2020-07-06] MEDS: PANTOPRAZOLE SODIUM IV 40 MG VIAL IV PUSH (09:13)
[2020-07-06] MEDS: FLUoxetine HCL 20 MG CAPSULE PO (09:13)
[2020-07-06 09:35] VITALS: O2SAT 94
[2020-07-06] MEDS: TRIAMCINOLONE ACET 0.1% CREAM 15 GM TUBE 1 APPLIC TOPICAL ×2 (12:39→20:49)
[2020-07-06] MEDS: diphenhydrAMINE HCl CAP 25 MG CAPSULE PO (12:40)
[2020-07-06 14:00] VITALS: BP 121/74; PULSE 78; RESP 16; TEMP 37.2; O2SAT 95
--- NOTE | 2020-07-06 14:00 | PM.IMPN ---
Progress Note: A&P Assessment and Plan (1) Aspiration pneumonia: Code(s): J69.0 - Pneumonitis due to inhalation of food and vomit Status: Acute Assessment and Plan: currently on Zosyn . vancomycin finished the course. sputum culture with MSSA. he is currenlty on zosyn day 6. with rash, likely a drug rash, will stop zosyn today. she is clinically improved so will watch off antibioticis at this point. (2) Suspected 2019 novel coronavirus infection: Code(s): Z20.822 - Contact with and (suspected) exposure to COVID-19 Status: Acute Assessment and Plan: ruled out (3) Fall: Code(s): W19.XXXA - Unspecified fall, initial encounter Status: Acute Assessment and Plan: no injuries CT head reviewed (4) Acute respiratory failure: Code(s): J96.00 - Acute respiratory failure, unspecified whether with hypoxia or hypercapnia Status: Acute Assessment and Plan: Patient is extubated now. Breathing better. Continue current treatment. this has resolved now (5) Status epilepticus: Code(s): G40.901 - Epilepsy, unspecified, not intractable, with status epilepticus Status: Acute Assessment and Plan: patient is on Keppra, valproic acid fentanyl and Versed follow neurology recs neurology has stopped following him. will reconsult. will switch his keppra and valproate to oral today. watch while on oral today. (6) Seizure disorder: Code(s): G40.909 - Epilepsy, unspecified, not intractable, without status epilepticus Status: Acute Assessment and Plan: patient has history of epilepsy currently on Keppra and valproic acid Additional Plan switch to oral antiseizure medications. advance diet. neurology reconsult for antiseizure medication adjustment. rash is likely drug related. will stop his zosyn. finished 5 days course. clinically improved Subjective Date/time seen: 07/06/20 14:00 Interval history: pateint reports rash on his back and his arms. mildly itchy. he wants his diet advanced. no fever, chills, sob, chest pain. extubated 07/04. more awake and alert. no sob, chest pain Review of Systems Constitutional: Constitutional: Denies fatigue and Denies weakness Eyes: Eyes: Denies blurry vision and Denies photophobia ENT: Denies nasal congestion and Denies nasal discharge Cardiovascular: Cardiovascular: Denies diaphoresis and Denies lightheadedness Respiratory: Respiratory: Denies cough, Denies dyspnea and Denies dyspnea on exertion Gastrointestinal: Gastrointestinal: Denies abdominal pain, Denies bloating, Denies diarrhea, Denies nausea and Denies vomiting Genitourinary: Genitourinary: Denies dysuria and Denies urinary frequency Musculoskeletal: Musculoskeletal: Denies back pain and Denies neck pain Integumentary/Breasts: Skin/Breast: Denies dry skin, Reports pruritus and Reports rash Neurologic: Denies Abnormal speech present and Denies abnormal gait Psychiatric: Psychiatric: Denies anxiety and Denies confusion Exam Const: General: comfortable, no acute distress and well developed Nutritional Appearance: average body habitus Orientation/consciousness: oriented to person, oriented to place, oriented to time and patient oriented x3 HENMT: Head: normal to inspection, normocephalic and atraumatic Ears: hearing grossly normal bilaterally Face and sinus: normal facial exam Eyes: General: appearance normal, both eyes and all related structures Pupils: Equal, round and reactive pupils present EOM: EOMs intact bilaterally Neck: Neck: full ROM, no lymphadenopathy and no JVD Thyroid: thyroid normal Lymphatic: no lymphadenopathy noted Resp: Effort & Inspection: normal respiratory effort and able to speak in complete sentences Auscultation: clear to auscultation bilaterally Cardio: Jugular venous distension: no JVD Rate: regular rate Rhythm: regular rhythm Heart sounds: S1 normal heart sound present and S2 normal heart s
[2020-07-06] MEDS: levETIRAcetam 500 MG TABLET 2000 MG PO (20:49)
[2020-07-06 22:00] VITALS: BP 127/71; PULSE 68; RESP 16; TEMP 36.9; O2SAT 99
[2020-07-07 06:00] VITALS: BP 114/63; PULSE 66; RESP 16; TEMP 36.8; O2SAT 95
[2020-07-07] MEDS: ACETAMINOPHEN 325 MG TABLET 650 MG PO (07:34)
[2020-07-07 08:00] VITALS: PULSE 66; RESP 16; O2SAT 95
[2020-07-07] MEDS: DOCUSATE SODIUM 100 MG CAPSULE PO (09:15)
[2020-07-07] MEDS: FLUoxetine HCL 20 MG CAPSULE PO (09:15)
[2020-07-07] MEDS: ENOXAPARIN 40 MG/0.4 ML SYRINGE SUB-Q (09:15)
[2020-07-07] MEDS: GABAPENTIN 400 MG CAPSULE PO (09:15)
[2020-07-07] MEDS: levETIRAcetam 500 MG TABLET 2000 MG PO (09:16)
[2020-07-07] MEDS: TRIAMCINOLONE ACET 0.1% CREAM 15 GM TUBE 1 APPLIC TOPICAL (09:16)
--- NOTE | 2020-07-07 10:56 | PM.DS ---
DS: Admitting Diagnosis Admitting Diagnosis Admitting Diagnosis: Seizures disorder Status epilepticus Aspiration pneumonia And respiratory failure DS: Discharge Diagnosis Discharge Diagnosis (1) Aspiration pneumonia: Code(s): J69.0 - Pneumonitis due to inhalation of food and vomit Status: Acute Assessment and Plan: currently on Zosyn . vancomycin finished the course. sputum culture with MSSA. he is currenlty on zosyn day 6. with rash, likely a drug rash, will stop zosyn today. she is clinically improved so will watch off antibioticis at this point. (2) Suspected 2019 novel coronavirus infection: Code(s): Z20.822 - Contact with and (suspected) exposure to COVID-19 Status: Acute Assessment and Plan: ruled out (3) Fall: Code(s): W19.XXXA - Unspecified fall, initial encounter Status: Acute Assessment and Plan: no injuries CT head reviewed (4) Acute respiratory failure: Code(s): J96.00 - Acute respiratory failure, unspecified whether with hypoxia or hypercapnia Status: Acute Assessment and Plan: Patient is extubated now. Breathing better. Continue current treatment. this has resolved now (5) Status epilepticus: Code(s): G40.901 - Epilepsy, unspecified, not intractable, with status epilepticus Status: Acute Assessment and Plan: patient is on Keppra, valproic acid fentanyl and Versed follow neurology recs neurology has stopped following him. will reconsult. will switch his keppra and valproate to oral today. watch while on oral today. (6) Seizure disorder: Code(s): G40.909 - Epilepsy, unspecified, not intractable, without status epilepticus Status: Acute Assessment and Plan: patient has history of epilepsy currently on Keppra and valproic acid DS: Summary Hospital Course Reason for hospitalization: Status epilepticus Hospital Course: 24 years old male with history of seizures were admitted complains of having seizures. Patient was found to be in status epilepticus. Patient also have respiratory failure with possible aspiration pneumonia. Patient was intubated and IV antibiotics was started and home medications were continued. Neurology consultation was done. Patient continued to improve and was extubated successfully. Today patient is feeling better so patient was discharged home stable condition. Time spent discussing smoking cessation with patient: 3 to 10 minutes Status at Discharge Cognitive/behavioral status at discharge: Stable Functional status at discharge: independent ambulation Overall status at discharge: patient is back to baseline Time Spent with Patient Time attestation: Total time spent providing and/or coordinating discharge services: Time spent: Less than 30 minutes DS: Data Data Completed and Pending Labs on day of discharge: Labs from last 24 hours 07/07/20 06:21 Free Valproic Acid Pending Total Valproic Acid Pending Discharge Plan Discharge Attending physician on discharge: Roberto Peña Consulting providers: Gennaro Champagne ; Uri Palma ; Justin Lilly Discharging Clinician: Roberto Peña Patient Disposition: Home, Self-Care Activity: as tolerated Diet: as tolerated and heart healthy Patient Instructions: Antibiotic Form, Epilepsy (DC) Stand Alone Forms: General Discharge Information Follow-up/Referrals: Gennaro Champagne MD [Physician] - Uri Palma MD [Physician] - Discharge Medications: New valproic acid 250 mg Capsule 1,000 mg PO Q8HR 30 Days Qty: 360 RF: 0 Continued gabapentin 400 mg Capsule 400 mg PO DAILY RF: 0 fluoxetine 20 mg Capsule 20 mg PO DAILY RF: 0 levetiracetam [Keppra] 1,000 mg Tablet 1,500 mg PO BID RF: 0 Date of admission: 06/29/20 12:31 Primary Care Provider: PHYSICIAN,ASSISTANT IMPORT MANAGER Admitting Provider: Maureen Santos Attending physician on admission: Maureen Santos
== END 2020-07-07 11:55 | disposition home or self-care (01) | DRG 100 ==
LOC: ANHED 19:21 → ANHIMU 20:49 → ANHICU 06-29 10:41 → ANH3MEDSUR 07-07 10:55 → ANHICU 07-08 09:50
PROVIDERS: Internal Medicine; Internal Medicine Critical Care Medicine; Admitting Provider Internal Medicine; Emergency Provider Emergency Medicine; Visit Provider Internal Medicine
DX: G40.901 Epilepsy, unspecified, not intractable, with status epilepticus (principal); A41.9 Sepsis, unspecified organism; J69.0 Pneumonitis due to inhalation of food and vomit; J18.9 Pneumonia, unspecified organism; J96.00 Acute respiratory failure, unspecified whether with hypoxia or hypercapnia; J98.11 Atelectasis; B95.61 Methicillin susceptible Staphylococcus aureus infection as the cause of diseases classified elsewhere; Z20.822 Contact with and (suspected) exposure to COVID-19; F32.9 Major depressive disorder, single episode, unspecified; W19.XXXA Unspecified fall, initial encounter; Z91.14 Patient's other noncompliance with medication regimen; L27.1 Localized skin eruption due to drugs and medicaments taken internally; T36.0X5A Adverse effect of penicillins, initial encounter; R00.0 Tachycardia, unspecified
CPT/HCPCS: 31500; 36415; 36600; 51701; 70450; 71045; 72125; 80053; 80164; 80165; 80177; 80202; 80307; 81001; 81003; 82375; 82805; 83050; 83605; 83735; 83880; 84100; 84145; 85025; 85027; 87040; 87070; 87077; 87186; 87205; 94002; 94003; 94667; 96361; 96365; 96366; 96367; 96368; 96372; 96375; 96376; 97110; 97116; 97161; 97165; 99285; A9270; C9113; C9803; G0378; G0379; J0131; J1650; J1953; J2060; J2250; J2405; J2543; J2704; J2765; J3010; J3370; J3475; J7030; J7050; U0003; U0005